=== PATIENT | female | born 1965 | race Caucasian/White ===

== ENCOUNTER 2023-12-31 18:55 | Inpatient (IN) ==
--- NOTE | 2023-12-31 19:26 | Emergency Department Note ---
Impression & Plan Pulmonary embolism ADMIT ED Provider Note History obtained from patient. The patient is a 58-year-old female with complex past surgical history secondary to perforated appendicitis requiring multiple surgical procedures at [facility] including ostomy placement this past October, subsequent infection requiring abscess drainage and washout 1 month ago, presents the emergency department today with chief complaint of shortness of breath. Patient states that she has had some shortness of breath throughout the day today since she woke up. Patient states this seemed to be getting acutely worse and therefore she contacted EMS from her home to be evaluated. Patient states that on their arrival she was saturating 85% on 2 L nasal cannula oxygen and therefore was placed on oxy-mask at 10 L with good improvement. Patient states that she believes that her oxygen tank might of run out and that is why she was feeling short of breath. Patient denies any abdominal pain, denies any nausea or vomiting. She states that she has had some drainage over the past month from the site of a previous drain placement and she states that she has seen her surgeon for this and was advised to continue daily dressings without need for surgical intervention. On arrival here to the ED the patient is hemodynamically stable and saturating in the high 90s on oxygen mask at 10 L. She denies any chest pain and otherwise appears to be in no acute distress on my initial assessment. Patient is afebrile on arrival. ROS: - Per HPI Differential Diagnosis: Pneumonia, CHF exacerbation, acute coronary syndrome, sepsis, abdominal wall cellulitis, pulmonary embolism, amongst other potential pathologies. *Outpatient medications and allergy history reviewed. PE: General: Alert, frail-appearing, no acute distress HEENT: Normocephalic, trachea midline Eyes: Extraocular eye movement is intact, no scleral erythema Pulmonary: Diminished bilateral breath sounds without wheezing or crackles Cardio: Regular rate and rhythm GI: Abdomen is soft to palpation, there is a Latesha drain in place in the anterior abdomen, ostomy is in place without surrounding erythema or drainage, there is appropriate drainage of stool in the ostomy bag, there is a wound with some purulent drainage to the anterior midline of the lower abdomen, open wound that appears to be healing appropriately to the left side of the abdomen without purulent drainage, there is an excoriated wound with overlying purulence that patient states is chronic to the area overlying the right hip : No suprapubic tenderness MSK: No evidence of trauma or malformation of the extremities, no edema Skin: Abdominal exam findings as above, otherwise no evidence of rash Neuro: Alert, no focal deficits Psychiatric: Cooperative INDEPENDENT INTERPRETATIONS: major sales associate: (As interpreted by myself): - An order was placed for continuous cardiac monitoring - Patient was noted to be in sinus rhythm with a rate of 95 EKG: (As interpreted by myself): Rate: 109 Rhythm: Sinus tachycardia Intervals: Within normal limits ST changes: No ST elevation Time: 7 Chest x-ray: (As interpreted by myself): Left-sided pleural effusion Interventions provided in ED: -DuoNeb breathing treatment, IV cefepime, IV vancomycin Medical Decision Making: IV was established and lab work obtained, patient was placed on manager auto. Patient was maintained on nonrebreather mask at 10 L. Lab work shows a leukocytosis of 21.8, hemoglobin is stable at 10.9, platelet count is elevated at 601, venous blood gas shows normal pH with minimal elevation in pCO2 of 51, CMP does not show any critical findings, procalcitonin is noted to be low at 0.16. EKG per my interpretation shows sinus rhythm without any acute ischemic changes. Troponin is negative. Viral panel testing was obtained and is negative. Given the patient's hypoxia and recent immobilized state secondary to multiple surgeries, I did obtain CT angiography of the chest that does show evidence of extensive right-sided pulmonary embolism with radiographic evidence of right heart strain, also evidence of bilateral pleural effusion with compressive atelectasis most significant in the left lower lobe. Patient was treated with IV cefepime and IV vancomycin here in the ED and started on IV heparin. I did discuss the patient's CT imaging results with the interpreting radiologist, Dr. Livingston. I discussed all of the above with the patient, on my reassessment she is with stable blood pressure and remains saturating well at 96% on 10 L nonrebreather mask. I discussed the patient's presentation with the on-call hospitalist, Dr. Donohue, and the patient was placed for admission in stable condition for further management. Consultants/Discussions held with other healthcare providers: -Hospitalist, Dr. Donohue -Radiology, Dr. Livingston Disposition discussion held by myself with: -Patient and significant other at the bedside * CRITICAL CARE TIME: ( 43 ) minutes -Management of patient with hypoxia (oxygen of 85% in the field despite nasal cannula oxygen) and evidence of extensive pulmonary embolism on CT imaging requiring supplemental oxygen via nonrebreather mask for correction of hypoxia and initiation of heparin drip for PE with evidence of right heart strain on CT imaging. Discussion with other physicians and arrangement of admission. Diagnosis: 1. Pulmonary embolism, acute 2. Hypoxia, acute 3. Leukocytosis, acute 4. Abdominal wall abscess with active drainage, chronic, postoperative in nature 5. Bilateral pleural effusion, acute Disposition: Admission Carlito Knight DO Emergency Medicine Past Med/Surg History Problem List (Updated 12/31/23 @ 23:18 by Carlito Knight DO) Pulmonary embolism (Acute) Elevated troponin Medical History (Updated 12/31/23 @ 23:18 by Carlito Knight DO) Hypothyroidism Diabetes Surgical History Colostomy present History of exploratory laparotomy Family History (Updated 11/26/23 @ 04:29 by Hallie Donohue DO) Other Family history non-contributory Social History (Updated 11/26/23 @ 04:30 by Hallie Donohue DO) Smoking Status: Never smoker Hx Alcohol Use: No Hx Substance Use: No Preferred Language: Maltese Feels Safe at Home: Yes Allergies Allergies Allergy/AdvReac Type Severity Reaction Status Date / Time No Known Allergies Allergy Verified 12/13/23 09:08 Home Meds Home Medications Medication Instructions Recorded Confirmed diphenoxylate-atropine 2.5 1 tab PO BID 11/26/23 12/13/23 mg-0.025 mg tablet ergocalciferol (vitamin D2) 1,250 50,000 unit PO WK 11/26/23 12/13/23 mcg (50,000 unit) capsule (Vitamin D2) insulin glargine 100 unit/mL (3 0 unit subcut DIRECTED 11/26/23 12/13/23 mL) subcutaneous pen (Lantus Solostar U-100 Insulin) insulin lispro 100 unit/mL 0 unit subcut DIRECTED 11/26/23 12/13/23 subcutaneous pen (Humalog KwikPen (U-100) Insulin) levothyroxine 150 mcg tablet 150 mcg PO DAILYBB 11/26/23 12/13/23 Results & Data (ED) Vital Signs Vital Signs - 24 hr 12/31/23 19:02 12/31/23 19:02 12/31/23 19:10 Temperature 36.9 C Temperature Source Oral Pulse Rate 112 H Pulse Rate [Apical] Respiratory Rate 32 H Respiratory Effort / Characteristics Labored Respiratory Depth Shallow Respiratory Pattern Tachypnea Blood Pressure 149/97 H Blood Pressure [Left Arm] Blood Pressure Mean 114 Blood Pressure Mean [Left Arm] Pulse Oximetry 96 Oxygen Delivery Method Non-rebreather Non-rebreather Non-rebreather Oxygen Flow Rate 10 10 10 Sepsis Recent Fever Within 48 Hours No Sepsis New/Unexplained Change in Mental Status No Sepsis Action Taken by Nursing Physician Notified 12/31/23 19:14 12/31/23 19:16 12/31/23 19:22 Temperature Temperature Source Pulse Rate 109 H 109 H Pulse Rate [Apical] 110 H Respiratory Rate 34 H 36 H Respiratory Effort / Characteristics Respiratory Depth Respiratory Pattern Blood Pressure Blood Pressure [Left Arm] 125/65 Blood Pressure Mean Blood Pressure Mean [Left Arm] 85 Pulse Oximetry 95 98 Oxygen Delivery Method Non-rebreather Non-rebreather Oxygen Flow Rate 10 10 Sepsis Recent Fever Within 48 Hours Sepsis New/Unexplained Change in Mental Status Sepsis Action Taken by Nursing 12/31/23 21:00 Temperature Temperature Source Pulse Rate Pulse Rate [Apical] 111 H Respiratory Rate 34 H Respiratory Effort / Characteristics Respiratory Depth Respiratory Pattern Blood Pressure Blood Pressure [Left Arm] 138/76 Blood Pressure Mean Blood Pressure Mean [Left Arm] 96 Pulse Oximetry 96 Oxygen Delivery Method Non-rebreather Oxygen Flow Rate 10 Sepsis Recent Fever Within 48 Hours Sepsis New/Unexplained Change in Mental Status Sepsis Action Taken by Nursing Laboratory Data 12/31/23 20:51 12/31/23 20:52 Lab Results 12/31/23 12/31/23 12/31/23 Range/Units 19:46 20:51 20:52 WBC 21.81 H (4.8-10.8) K/ul RBC 3.90 L (4.20-5.40) M/uL Hgb 10.9 L (12.0-16.0) g/dl Hct 35.3 L (37.0-47.0) % MCV 90.5 (80.0-100.0) fL MCH 27.9 (25.0-34.0) pg MCHC 30.9 L (32.0-36.0) g/dL RDW Std Deviation 57.8 H (36.4-46.3) fL RDW Coeff of Krista 17.6 H (11.5-14.5) % Plt Count 601 H (130-400) K/uL MPV 9.2 L (9.4-12.4) fL Immature Gran % (Auto) 1.1 % Neut % (Auto) 70.2 % Lymph % (Auto) 20.0 % Schley % (Auto) 7.9 % Eos % (Auto) 0.2 % Baso % (Auto) 0.6 % Neut # (Auto) 15.32 H (1.40-6.50) K/uL Lymph # (Auto) 4.36 H (1.20-3.40) K/uL Schley # (Auto) 1.73 H (0.11-0.59) K/uL Eos # (Auto) 0.04 (0.00-0.50) K/uL Baso # (Auto) 0.12 (0.00-0.20) K/uL Immature Gran # (Auto) 0.24 H (0.01-0.20) K/uL VBG pH 7.36 (7.36-7.41) VBG pCO2 51 H (38-50) mmHg VBG pO2 39 mmHg VBG HCO3 29 mmol/L VBG O2 Saturation 64.7 % VBG Base Excess 2.4 mEq/L Sodium 136 (136-145) mmol/L Potassium 3.9 (3.5-5.1) mmol/L Chloride 98 (98-107) mmol/L Carbon Dioxide 26 (21-32) mmol/L Anion Gap 12 H (3-11) BUN 14 (6-23) mg/dl Creatinine 0.44 L (0.6-1.2) mg/dl Est Cr Clr Drug Dosing 142.7 ml/min Est GFR ( Amer) 127.2 ml/min Est GFR (Non-Af Amer) 109.7 ml/min BUN/Creatinine Ratio 31.8 H (10-20) Glucose 140 H (70-99(Fasting)) mg/dl Lactate (0.4-2.0) mmol/L Calcium 9.7 (8.6-10.3) mg/dl Total Bilirubin 0.5 (0.2-1.0) mg/dl AST 12 L (13-39) U/L ALT 17 (7-52) U/L Alkaline Phosphatase 379 H (34-104) U/L Troponin I High Sens 12.1 (0-14) pg/ml B-Natriuretic Peptide 103 H (0-100) pg/ml Total Protein 7.2 (6.0-8.3) gm/dl Albumin 2.9 L (3.4-5.0) gm/dl Globulin 4.3 H (2.5-4.0) gm/dl Albumin/Globulin Ratio 0.7 L (0.9-2) Procalcitonin 0.16 (0-0.5) ng/ml Adenovirus (PCR) Not Detected (NotDetected) B. pertussis DNA (PCR) Not Detected (NotDetected) B.parapertussis DNA PCR Not Detected (NotDetected) C. pneumoniae DNA (PCR) Not Detected (NotDetected) Coronavirus OC43 (PCR) Not Detected (NotDetected) Coronavirus HKU1 (PCR) Not Detected (NotDetected) Coronavirus 229E (PCR) Not Detected (NotDetected) SARS-CoV-2 (PCR) Not Detected (NotDetected) Coronavirus NL63 (PCR) Not Detected (NotDetected) Human Metapneumovir PCR Not Detected (NotDetected) Influenza Type A (PCR) Not Detected (NotDetected) Influenza Type B (PCR) Not Detected (NotDetected) M. pneumoniae (PCR) Not Detected (NotDetected) Parainfluenza 1 (PCR) Not Detected (NotDetected) Parainfluenza 2 (PCR) Not Detected (NotDetected) Parainfluenza 3 (PCR) Not Detected (NotDetected) Parainfluenza 4 (PCR) Not Detected (NotDetected) RSV (PCR) Not Detected (NotDetected) Entero/Rhino (PCR) Not Detected (NotDetected) 12/31/23 Range/Units 21:38 WBC (4.8-10.8) K/ul RBC (4.20-5.40) M/uL Hgb (12.0-16.0) g/dl Hct (37.0-47.0) % MCV (80.0-100.0) fL MCH (25.0-34.0) pg MCHC (32.0-36.0) g/dL RDW Std Deviation (36.4-46.3) fL RDW Coeff of Krista (11.5-14.5) % Plt Count (130-400) K/uL MPV (9.4-12.4) fL Immature Gran % (Auto) % Neut % (Auto) % Lymph % (Auto) % Schley % (Auto) % Eos % (Auto) % Baso % (Auto) % Neut # (Auto) (1.40-6.50) K/uL Lymph # (Auto) (1.20-3.40) K/uL Schley # (Auto) (0.11-0.59) K/uL Eos # (Auto) (0.00-0.50) K/uL Baso # (Auto) (0.00-0.20) K/uL Immature Gran # (Auto) (0.01-0.20) K/uL VBG pH (7.36-7.41) VBG pCO2 (38-50) mmHg VBG pO2 mmHg VBG HCO3 mmol/L VBG O2 Saturation % VBG Base Excess mEq/L Sodium (136-145) mmol/L Potassium (3.5-5.1) mmol/L Chloride (98-107) mmol/L Carbon Dioxide (21-32) mmol/L Anion Gap (3-11) BUN (6-23) mg/dl Creatinine (0.6-1.2) mg/dl Est Cr Clr Drug Dosing ml/min Est GFR ( Amer) ml/min Est GFR (Non-Af Amer) ml/min BUN/Creatinine Ratio (10-20) Glucose (70-99(Fasting)) mg/dl Lactate 1.5 (0.4-2.0) mmol/L Calcium (8.6-10.3) mg/dl Total Bilirubin (0.2-1.0) mg/dl AST (13-39) U/L ALT (7-52) U/L Alkaline Phosphatase (34-104) U/L Troponin I High Sens (0-14) pg/ml B-Natriuretic Peptide (0-100) pg/ml Total Protein (6.0-8.3) gm/dl Albumin (3.4-5.0) gm/dl Globulin (2.5-4.0) gm/dl Albumin/Globulin Ratio (0.9-2) Procalcitonin (0-0.5) ng/ml Adenovirus (PCR) (NotDetected) B. pertussis DNA (PCR) (NotDetected) B.parapertussis DNA PCR (NotDetected) C. pneumoniae DNA (PCR) (NotDetected) Coronavirus OC43 (PCR) (NotDetected) Coronavirus HKU1 (PCR) (NotDetected) Coronavirus 229E (PCR) (NotDetected) SARS-CoV-2 (PCR) (NotDetected) Coronavirus NL63 (PCR) (NotDetected) Human Metapneumovir PCR (NotDetected) Influenza Type A (PCR) (NotDetected) Influenza Type B (PCR) (NotDetected) M. pneumoniae (PCR) (NotDetected) Parainfluenza 1 (PCR) (NotDetected) Parainfluenza 2 (PCR) (NotDetected) Parainfluenza 3 (PCR) (NotDetected) Parainfluenza 4 (PCR) (NotDetected) RSV (PCR) (NotDetected) Entero/Rhino (PCR) (NotDetected) Administered Medications Discontinued Medications Albuterol (Albut/Ipratrop 3mg/0.5mg Neb 3 Ml Vial) 3 ml NEB NOW STA; Protocol Stop: 12/31/23 19:18 Last Admin: 12/31/23 19:51 Dose: 3 ml Documented By: MERVIN Ioversol (Optiray 320 125ml) 125 ml IV ONCE ONE Stop: 12/31/23 22:51 Last Admin: 12/31/23 22:50 Dose: 118 ml Documented By: CE Imaging Data Radiologist's Impression: Chest CTA 12/31/23 19:19 CR Exam(s): CTA CHEST IV Amt: 118 ML OPTIRAY 320 EXAM: CT Angiography Chest With Intravenous Contrast CLINICAL HISTORY: Reason for exam: PE. TECHNIQUE: Axial computed tomographic angiography images of the chest with intravenous contrast. CTDI is 28.2 mGy and DLP is 498.52 mGy-cm. Automated exposure control was utilized for the study. A dose lowering technique was utilized adhering to the principles of ALARA. MIP reconstructed images were created and reviewed. COMPARISON: 11/26/23 FINDINGS: Limitations: Motion artifact. Pulmonary arteries: Adequate opacification of the pulmonary arteries. Enlarged main pulmonary artery suggesting pulmonary arterial hypertension. Extensive acute pulmonary emboli beginning in the right pulmonary artery and extending through the lobar, segmental, and subsegmental branches of the right upper, middle, and lower lobes. Aorta: No acute findings. No thoracic aortic aneurysm. Lungs: Compressive atelectasis in the dependent lung torres bilaterally with complete collapse of the left lower lobe. No mass. Pleural space: Moderate left and small right pleural effusions, increased from prior exam. No pneumothorax. Heart: Positive for right ventricular seen with RV/LV ratio measuring 2. 0. No cardiomegaly or pericardial effusion. Bones/joints: No acute fracture or dislocation. Soft tissues: Unremarkable. Lymph nodes: Unremarkable. No adenopathy. IMPRESSION: 1. Extensive acute pulmonary emboli beginning in the right pulmonary artery and extending through the lobar, segmental, and subsegmental branches of the right upper, middle, and lower lobes. 2. Positive for right ventricular seen with RV/LV ratio measuring 2.0. 3. Moderate left and small right pleural effusions, increased from prior exam. 4. Compressive atelectasis in the dependent lung torres bilaterally with complete collapse of the left lower lobe. Communications: Call Doctor Pulmonary Embolism Electronically signed by: Bello Livingston M.D. 12/31/23 23:10 PM Discharge Plan Visit Data Chief Complaint: Respiratory Problems ED Provider: Carlito Knight Discharge Problem: Pulmonary embolism Forms Stand Alone Forms: [facility] Prescriptions Prescriptions: No Action diphenoxylate-atropine 2.5-0.025 mg tablet 1 tab PO BID levothyroxine 150 mcg tablet 150 mcg PO DAILYBB ergocalciferol (vitamin D2) [Vitamin D2] 1,250 mcg (50,000 unit) capsule 50,000 unit PO WK Rx Instructions: MONDAYS insulin lispro [Humalog KwikPen Insulin] 100 unit/mL insulin pen 0 unit SUBCUT DIRECTED insulin glargine [Lantus Solostar U-100 Insulin] 100 unit/mL (3 mL) insulin pen 0 unit SUBCUT DIRECTED Referrals Referrals: Elsa Hilliard MD [Primary Care Provider] - Discharge Problem: Pulmonary embolism Qualifiers: Pulmonary embolism type: unspecified Chronicity: acute Acute cor pulmonale presence: unspecified Qualified Code(s): I26.99 - Other pulmonary embolism without acute cor pulmonale
[2023-12-31] MEDS: ALBUT/IPRATROP 3MG/0.5MG NEB 3 ML VIAL NEB STA (19:51)
[2023-12-31 20:54] LABS: Adenovirus PCR Not Detected (NotDetected); Bordetella parapertussis PCR Not Detected (NotDetected); Bordetella pertussis PCR Not Detected (NotDetected); Chlamydia pneumoniae PCR Not Detected (NotDetected); Coronavirus 229E PCR Not Detected (NotDetected); Coronavirus CoV-2 (COVID19)PCR Not Detected (NotDetected); Coronavirus HKU1 PCR Not Detected (NotDetected); Coronavirus NL63 PCR Not Detected (NotDetected); Coronavirus OC43PCR Not Detected (NotDetected); Human Metapneumovirus PCR Not Detected (NotDetected); Influenza A PCR Not Detected (NotDetected); Influenza B PCR Not Detected (NotDetected); Mycoplasma pneumoniae PCR Not Detected (NotDetected); Parainfluenza Virus 1 PCR Not Detected (NotDetected); Parainfluenza Virus 2 PCR Not Detected (NotDetected); Parainfluenza Virus 3 PCR Not Detected (NotDetected); Parainfluenza Virus 4 PCR Not Detected (NotDetected); Respiratory Syncytial VirusPCR Not Detected (NotDetected); Rhinovirus/Enterovirus PCR Not Detected (NotDetected)
[2023-12-31 21:04] LABS: Base Excess VBG 2.4 mEq/L; HCO3 VBG 29 mmol/L; Oxygen Saturation VBG 64.7 %; PCO2 VBG 51 mmHg (38-50); PO2 VBG 39 mmHg; pH VBG 7.36 (7.36-7.41)
[2023-12-31 21:16] LABS: Basophils # (auto) 0.12 K/uL (0.00-0.20); Basophils % (auto) 0.6 %; Eosinophils # (auto) 0.04 K/uL (0.00-0.50); Eosinophils % (auto) 0.2 %; Hematocrit (blood only) 35.3 % (37.0-47.0); Hemoglobin 10.9 g/dl (12.0-16.0); Immature Granulocytes # (auto) 0.24 K/uL (0.01-0.20); Immature Granulocytes % (auto) 1.1 %; Lymphocytes # (auto) 4.36 K/uL (1.20-3.40); Mean Corpuscular Hemoglobin 27.9 pg (25.0-34.0); Mean Corpuscular Hgb Conc 30.9 g/dL (32.0-36.0); Mean Corpuscular Volume 90.5 fL (80.0-100.0); Mean Platelet Volume 9.2 fL (9.4-12.4); Monocytes # (auto) 1.73 K/uL (0.11-0.59); Monocytes % (auto) 7.9 %; Neutrophils # (auto) 15.32 K/uL (1.40-6.50); Neutrophils % (auto) 70.2 %; Platelet Count 601 K/uL (130-400); RDW Coefficient of Variation 17.6 % (11.5-14.5); RDW Standard Deviation 57.8 fL (36.4-46.3); White Blood Count 21.81 K/ul (4.8-10.8)
[2023-12-31] MEDS ORDERED: VANCOMYCIN CONSULT ACTIVE PRN (21:18)
[2023-12-31] MEDS ORDERED: ONDANSETRON INJ 2 MG/ML 2 ML VIAL IV STA (21:59)
[2023-12-31] MEDS ORDERED: MoRPHine SULFATE 4 MG/ML 1 ML CARP\\VIAL IV STA (21:59)
[2023-12-31 22:28] LABS: Albumin Level 2.9 gm/dl (3.4-5.0); Bilirubin,Total 0.5 mg/dl (0.2-1.0); Calcium 9.7 mg/dl (8.6-10.3); Potassium 3.9 mmol/L (3.5-5.1)
[2023-12-31 22:34] LABS: Albumin Globulin Ratio 0.7 (0.9-2); BUN Creatinine Ratio 31.8 (10-20); Creatinine Clr Calc Pharmacy 142.7 ml/min; Est GFR (African American) 127.2 ml/min; Est GFR (Non-African American) 109.7 ml/min; Globulin 4.3 gm/dl (2.5-4.0); Total Protein 7.2 gm/dl (6.0-8.3)
[2023-12-31 22:44] LABS: Troponin I High Sensitivity 12.1 pg/ml (0-14)
[2023-12-31] MEDS: OPTIRAY 320 125ml IV ONE (22:50)
[2023-12-31] MEDS ORDERED: Heparin IV Adult Wt-Based Standard w/ INITIAL Bolus Protocol IV STA (22:54)
--- NOTE | 2023-12-31 23:11 | CT Scan Report ---
Exam(s): CTA CHEST IV Amt: 118 ML OPTIRAY 320 EXAM: CT Angiography Chest With Intravenous Contrast CLINICAL HISTORY: Reason for exam: PE. TECHNIQUE: Axial computed tomographic angiography images of the chest with intravenous contrast. CTDI is 28.2 mGy and DLP is 498.52 mGy-cm. Automated exposure control was utilized for the study. A dose lowering technique was utilized adhering to the principles of ALARA. MIP reconstructed images were created and reviewed. COMPARISON: 11/26/23 FINDINGS: Limitations: Motion artifact. Pulmonary arteries: Adequate opacification of the pulmonary arteries. Enlarged main pulmonary artery suggesting pulmonary arterial hypertension. Extensive acute pulmonary emboli beginning in the right pulmonary artery and extending through the lobar, segmental, and subsegmental branches of the right upper, middle, and lower lobes. Aorta: No acute findings. No thoracic aortic aneurysm. Lungs: Compressive atelectasis in the dependent lung torres bilaterally with complete collapse of the left lower lobe. No mass. Pleural space: Moderate left and small right pleural effusions, increased from prior exam. No pneumothorax. Heart: Positive for right ventricular seen with RV/LV ratio measuring 2. 0. No cardiomegaly or pericardial effusion. Bones/joints: No acute fracture or dislocation. Soft tissues: Unremarkable. Lymph nodes: Unremarkable. No adenopathy. IMPRESSION: 1. Extensive acute pulmonary emboli beginning in the right pulmonary artery and extending through the lobar, segmental, and subsegmental branches of the right upper, middle, and lower lobes. 2. Positive for right ventricular seen with RV/LV ratio measuring 2.0. 3. Moderate left and small right pleural effusions, increased from prior exam. 4. Compressive atelectasis in the dependent lung torres bilaterally with complete collapse of the left lower lobe. Communications: Call Doctor Pulmonary Embolism Electronically signed by: Bello Livingston M.D. 12/31/23 23:10 PM
[2023-12-31] MEDS: CEFEPIME 1,000 MG in SYRINGE 0 ML IV STA (23:21)
[2023-12-31] MEDS: VANCOMYCIN HCL 1,500 MG in SODIUM CHLORIDE 0.9% 500 ML IV ONE (23:24)
[2023-12-31 23:44] LABS: INR 1.1 (0.9-1.1); Partial Thromboplastin Ratio 1.2; Partial Thromboplastin Time 32 Seconds (21-31); Prothrombin Time 12.1 Seconds (9.0-12.0)
--- NOTE | 2024-01-01 00:20 | History & Physical Report ---
Date of Service January 01, 2024 Assessment & Plan (1) Pulmonary embolism: Plan: 58yo female with extensive surgical history presenting with acute onset shortness of breath. Found to have extensive right sided PE. Patient with tachycardia. Blood pressure has been stable. Saturations adequate on NRB. Patient with prior history of PE in 2003 following operation on the right foot. -Admit to MICU -Heparin gtt --> NOAC when stable -Check 2D echo -Should patient become unstable will administer tPA -Check bilateral LE dopplers (2) Hypoxic respiratory failure: Plan: In setting of PE, bilateral pleural effusions, possible PNA -Continue supplemental O2 -Continue heparin gtt for management of PEs -Possible thoracentesis in AM -Empiric antibiotic coverage with Zosyn and Vancomycin (3) Open abdominal wall wound: Plan: Likely ongoing infection. Patient with sepsis, present on admission - tachycardia, tachypnea, leukocytosis. -Wound care -Culture obtained from left lower abdominal wound -Continue Zosyn -Nutrition consultation - hopeful to improve wound healing -Check CT Abdomen/Pelvis with contrast - timed for later today at 12:00 (appx 13 hours following last administration of contrast) -Morphine as needed for pain control -Zofran as needed for nausea -Miralax as needed for constipation (4) Bilateral pleural effusion: Plan: Noted. Possibly contributing to patient's hypoxia -Possible thoracentesis Plan Hypothyroidism -Chronic -Continue Synthroid DM -Chronic -Lantus 24u daily and ISS History of Present Illness Chief Complaint: shortness of breath Primary Care Provider: Elsa Hilliard MD Acacia Vo is a 58yo female with history of Hypothyroidism, DM presenting with shortness of breath. Patient with a fairly complex past history. She initially presented to an outside facility on 10/27/23 with abdominal pain and DKA. She was found to have perforation of her colon and appendix. She had a partial colectomy with colostomy formation and was ultimately discharged home on 11/13/23. She presented to [facility] ER on 11/26/23 with sepsis - WBC of 56.47. Imaging at that time with moderate bilateral pleural effusions, bilateral lower lobe atelectasis and a fluid collection to the right posterolateral uterus measuring 5.5 x 2 x 2 cm which could represent a small abscess. Patient was managed with Zosyn and ultimately transferred to [facility]. She remained there until 12/05/23 and reportedly had a washout performed. She has an open abdominal wound at present with wet-to-dry dressings daily as well as a curtis drain. She has a small tunneled lesion on her left lower abdomen with continuous purulent drainage. Patient was discharged to [facility] where she participated in rehab. She was ultimately discharged home on 12/16/23. Patient reports she has been very weak since returning home. She is very afraid of falling therefore does not ambulate much. She has had a poor appetite and note eating well. Her and home nursing complete dressing changes. In addition to her abdominal wounds she has a sacral wound as well. This AM she woke and did not feel like herself. She felt nauseated and very short of breath. She was not able to eat her breakfast or walk due to her s hortness of breath. Patient wears 2L of supplemental O2 at baseline - she reports that her home tank wasn't working. Her nurse checked her pulse ox and was found to be 85%. Her O2 tank was fixed and increased her flow to 4L but she remained short of breath which prompted her to come to the ER. In the ER she was afebrile, tachycardic with HR of 103, tachypneic with RR of 31, saturating 70% on RA. She was placed on NRB with improvement in saturations. Allergies Allergy/AdvReac Type Severity Reaction Status Date / Time No Known Allergies Allergy Verified 01/01/24 01:02 Home Medications Medication Instructions Recorded Confirmed Type ergocalciferol (vitamin D2) 1,250 50,000 unit PO WK 11/26/23 01/01/24 History mcg (50,000 unit) capsule (Vitamin D2) insulin lispro 100 unit/mL 6 unit subcut TIDM 11/26/23 01/01/24 History subcutaneous pen (Humalog KwikPen (U-100) Insulin) levothyroxine 150 mcg tablet 150 mcg PO DAILYBB 11/26/23 01/01/24 History ascorbic acid (vitamin C) 500 mg 500 mg PO Q OTHER DAY 01/01/24 01/01/24 History tablet (Vitamin C) cephalexin 250 mg capsule 250 mg PO Q6 01/01/24 01/01/24 History ferrous sulfate 325 mg (65 mg 325 mg PO Q OTHER DAY 01/01/24 01/01/24 History iron) tablet folic acid 1 mg tablet 1 mg PO DAILY 01/01/24 01/01/24 History insulin glargine 100 unit/mL (3 24 unit subcut QAM 01/01/24 01/01/24 History mL) subcutaneous pen (Lantus Solostar U-100 Insulin) pantoprazole 40 mg tablet,delayed 40 mg PO DAILYBB 01/01/24 01/01/24 History release (Protonix) psyllium husk 3.4 gram/5.4 gram 1 tbsp PO BID PRN Constipation 01/01/24 01/01/24 History oral powder (Metamucil) Past Med/Surg History Problem List Nutritional assessment Open abdominal wall wound Bilateral pleural effusion Hypoxic respiratory failure SIRS (systemic inflammatory response syndrome) Pulmonary embolism (Acute) Elevated troponin Medical History Hypothyroidism Diabetes Surgical History Colostomy present History of exploratory laparotomy Family History Other Family history non-contributory Social History Smoking Status: Unknown if ever smoked Hx Alcohol Use: No Hx Substance Use: No Preferred Language: Indonesian Communication Ability: Effective Combatant Swimmer Required: No Beliefs That Will Affect Care: None Current Living Situation: Spouse Other Information That Helps Us Care for You: No Feels Safe at Home: Yes Safety Concerns: Feels Safe At This Time Assistive Devices: Glasses and Walker Review of Systems Review of Systems: All systems reviewed & are unremarkable except as noted in HPI & below Patient endorses nausea, sacral pain and shortness of breath Physical Exam Physical Exam: General: ill appearing female, NRB in place Skin: no rash HEENT: NC/AT, PERRL, EOMI, anicteric sclera, conjunctiva without injection, external ear normal to inspection and nontender, nares patent, moist mucus membranes, dentition intact, no oropharyngeal lesions, neck supple, trachea midline, no LAD, no thyromegaly, no JVD Heart: +S1/S2, regular, tachycardic, no m/r/g Lungs: visibly tachypneic, diminished breath sounds in bilateral bases, no rhonchi or wheeze Abd: +BS, soft, open abdominal wound with ABD pad in place, curtis drain in place, small wound in left lower abdomen with expressible purulence, colostomy present with soft stool present in bag Neuro: nonfocal, patient AA&O x 4, speech intact, no facial droop, moving all extremities on command with equal strength 5/5 Results & Data Results & Data Vital Signs (Past 12 Hours) Vital Signs Temp Pulse Pulse Resp BP BP Pulse Ox 12/31/23 23:00 103 H 31 H 120/82 95 12/31/23 21:00 111 H 34 H 138/76 96 12/31/23 19:22 109 H 36 H 98 12/31/23 19:16 109 H 12/31/23 19:14 110 H 34 H 125/65 95 12/31/23 19:10 12/31/23 19:02 36.9 C 112 H 32 H 149/97 H 96 12/31/23 19:02 O2 Del Method O2 Flow Rate 12/31/23 23:00 12/31/23 21:00 Non-rebreather 10 12/31/23 19:22 Non-rebreather 10 12/31/23 19:16 12/31/23 19:14 Non-rebreather 10 12/31/23 19:10 Non-rebreather 10 12/31/23 19:02 Non-rebreather 10 12/31/23 19:02 Non-rebreather 10 Laboratory Results Laboratory Results WBC 21.81 K/ul (4.8-10.8) H 12/31/23 20:51 RBC 3.90 M/uL (4.20-5.40) L 12/31/23 20:51 Hgb 10.9 g/dl (12.0-16.0) L 12/31/23 20:51 Hct 35.3 % (37.0-47.0) L 12/31/23 20:51 MCV 90.5 fL (80.0-100.0) 12/31/23 20:51 MCH 27.9 pg (25.0-34.0) 12/31/23 20:51 MCHC 30.9 g/dL (32.0-36.0) L 12/31/23 20:51 RDW Std Deviation 57.8 fL (36.4-46.3) H 12/31/23 20:51 RDW Coeff of Krista 17.6 % (11.5-14.5) H 12/31/23 20:51 Plt Count 601 K/uL (130-400) H 12/31/23 20:51 MPV 9.2 fL (9.4-12.4) L 12/31/23 20:51 Immature Gran % (Auto) 1.1 % 12/31/23 20:51 Neut % (Auto) 70.2 % 12/31/23 20:51 Lymph % (Auto) 20.0 % 12/31/23 20:51 [place] % (Auto) 7.9 % 12/31/23 20:51 Eos % (Auto) 0.2 % 12/31/23 20:51 Baso % (Auto) 0.6 % 12/31/23 20:51 Neut # (Auto) 15.32 K/uL (1.40-6.50) H 12/31/23 20:51 Lymph # (Auto) 4.36 K/uL (1.20-3.40) H 12/31/23 20:51 [place] # (Auto) 1.73 K/uL (0.11-0.59) H 12/31/23 20:51 Eos # (Auto) 0.04 K/uL (0.00-0.50) 12/31/23 20:51 Baso # (Auto) 0.12 K/uL (0.00-0.20) 12/31/23 20:51 Immature Gran # (Auto) 0.24 K/uL (0.01-0.20) H 12/31/23 20:51 PT 12.1 Seconds (9.0-12.0) H 12/31/23 20:51 INR 1.1 (0.9-1.1) 12/31/23 20:51 APTT 32 Seconds (21-31) H 12/31/23 20:51 PTT Ratio 1.2 12/31/23 20:51 VBG pH 7.36 (7.36-7.41) 12/31/23 20:51 VBG pCO2 51 mmHg (38-50) H 12/31/23 20:51 VBG pO2 39 mmHg 12/31/23 20:51 VBG HCO3 29 mmol/L 12/31/23 20:51 VBG O2 Saturation 64.7 % 12/31/23 20:51 VBG Base Excess 2.4 mEq/L 12/31/23 20:51 Sodium 136 mmol/L (136-145) 12/31/23 20:52 Potassium 3.9 mmol/L (3.5-5.1) 12/31/23 20:52 Chloride 98 mmol/L (98-107) 12/31/23 20:52 Carbon Dioxide 26 mmol/L (21-32) 12/31/23 20:52 Anion Gap 12 (3-11) H 12/31/23 20:52 BUN 14 mg/dl (6-23) 12/31/23 20:52 Creatinine 0.44 mg/dl (0.6-1.2) L 12/31/23 20:52 Est Cr Clr Drug Dosing 142.7 ml/min 12/31/23 20:52 Est GFR ( Amer) 127.2 ml/min 12/31/23 20:52 Est GFR (Non-Af Amer) 109.7 ml/min 12/31/23 20:52 BUN/Creatinine Ratio 31.8 (10-20) H 12/31/23 20:52 Glucose 140 mg/dl (70-99(Fasting)) H 12/31/23 20:52 POC Glucose 119 mg/dl (70-99) H 01/01/24 01:34 Lactate 1.5 mmol/L (0.4-2.0) 12/31/23 21:38 Calcium 9.7 mg/dl (8.6-10.3) 12/31/23 20:52 Phosphorus 4.2 mg/dl (2.5-4.9) 12/31/23 20:52 Magnesium 1.7 mg/dl (1.7-2.4) 12/31/23 20:52 Iron 18 mcg/dl (35-150) L 12/31/23 20:52 TIBC 173 mcg/dl (250-450) L 12/31/23 20:52 Unsaturated IBC 155 mcg/dl (155-355) 12/31/23 20:52 Transferrin % Sat 10 % (15-50) L 12/31/23 20:52 Total Bilirubin 0.5 mg/dl (0.2-1.0) 12/31/23 20:52 AST 12 U/L (13-39) L 12/31/23 20:52 ALT 17 U/L (7-52) 12/31/23 20:52 Alkaline Phosphatase 379 U/L (34-104) H 12/31/23 20:52 Troponin I High Sens 12.1 pg/ml (0-14) 12/31/23 20:52 B-Natriuretic Peptide 103 pg/ml (0-100) H 12/31/23 20:51 Total Protein 7.2 gm/dl (6.0-8.3) 12/31/23 20:52 Albumin 2.9 gm/dl (3.4-5.0) L 12/31/23 20:52 Globulin 4.3 gm/dl (2.5-4.0) H 12/31/23 20:52 Albumin/Globulin Ratio 0.7 (0.9-2) L 12/31/23 20:52 Procalcitonin 0.16 ng/ml (0-0.5) 12/31/23 20:51 Nasal Screen MRSA (PCR) Negative (Negative) 01/01/24 01:04 Adenovirus (PCR) Not Detected (NotDetected) 12/31/23 19:46 B. pertussis DNA (PCR) Not Detected (NotDetected) 12/31/23 19:46 B.parapertussis DNA PCR Not Detected (NotDetected) 12/31/23 19:46 C. pneumoniae DNA (PCR) Not Detected (NotDetected) 12/31/23 19:46 Coronavirus OC43 (PCR) Not Detected (NotDetected) 12/31/23 19:46 Coronavirus HKU1 (PCR) Not Detected (NotDetected) 12/31/23 19:46 Coronavirus 229E (PCR) Not Detected (NotDetected) 12/31/23 19:46 SARS-CoV-2 (PCR) Not Detected (NotDetected) 12/31/23 19:46 Coronavirus NL63 (PCR) Not Detected (NotDetected) 12/31/23 19:46 Human Metapneumovir PCR Not Detected (NotDetected) 12/31/23 19:46 Influenza Type A (PCR) Not Detected (NotDetected) 12/31/23 19:46 Influenza Type B (PCR) Not Detected (NotDetected) 12/31/23 19:46 M. pneumoniae (PCR) Not Detected (NotDetected) 12/31/23 19:46 Parainfluenza 1 (PCR) Not Detected (NotDetected) 12/31/23 19:46 Parainfluenza 2 (PCR) Not Detected (NotDetected) 12/31/23 19:46 Parainfluenza 3 (PCR) Not Detected (NotDetected) 12/31/23 19:46 Parainfluenza 4 (PCR) Not Detected (NotDetected) 12/31/23 19:46 RSV (PCR) Not Detected (NotDetected) 12/31/23 19:46 Entero/Rhino (PCR) Not Detected (NotDetected) 12/31/23 19:46 Impressions Chest CTA 12/31/23 19:19 CR Exam(s): CTA CHEST IV Amt: 118 ML OPTIRAY 320 EXAM: CT Angiography Chest With Intravenous Contrast CLINICAL HISTORY: Reason for exam: PE. TECHNIQUE: Axial computed tomographic angiography images of the chest with intravenous contrast. CTDI is 28.2 mGy and DLP is 498.52 mGy-cm. Automated exposure control was utilized for the study. A dose lowering technique was utilized adhering to the principles of ALARA. MIP reconstructed images were created and reviewed. COMPARISON: 11/26/23 FINDINGS: Limitations: Motion artifact. Pulmonary arteries: Adequate opacification of the pulmonary arteries. Enlarged main pulmonary artery suggesting pulmonary arterial hypertension. Extensive acute pulmonary emboli beginning in the right pulmonary artery and extending through the lobar, segmental, and subsegmental branches of the right upper, middle, and lower lobes. Aorta: No acute findings. No thoracic aortic aneurysm. Lungs: Compressive atelectasis in the dependent lung torres bilaterally with complete collapse of the left lower lobe. No mass. Pleural space: Moderate left and small right pleural effusions, increased from prior exam. No pneumothorax. Heart: Positive for right ventricular seen with RV/LV ratio measuring 2. 0. No cardiomegaly or pericardial effusion. Bones/joints: No acute fracture or dislocation. Soft tissues: Unremarkable. Lymph nodes: Unremarkable. No adenopathy. IMPRESSION: 1. Extensive acute pulmonary emboli beginning in the right pulmonary artery and extending through the lobar, segmental, and subsegmental branches of the right upper, middle, and lower lobes. 2. Positive for right ventricular seen with RV/LV ratio measuring 2.0. 3. Moderate left and small right pleural effusions, increased from prior exam. 4. Compressive atelectasis in the dependent lung torres bilaterally with complete collapse of the left lower lobe. Communications: Call Doctor Pulmonary Embolism Electronically signed by: Bello Livingston M.D. 12/31/23 23:10 PM Code Status & VTE Plan VTE Prophylaxis Plan VTE Prophylaxis will be ordered: Yes PG Care Time/CCT Total # of Minutes Spent Total Time Spent with Patient: Total time spent is greater than 50% in coordination of care (as documented) at patient's floor/unit and/or counseling patient: Coding Level of Care Code 27457 INT INP/OBS CARE 3/75MIN Diagnoses Pulmonary embolism I26.99 Acute cor pulmonale presence: unspecified Chronicity: acute Pulmonary embolism type: unspecified Hypoxic respiratory failure J96.91 Open abdominal wall wound S31.109A Bilateral pleural effusion J90 (1) Pulmonary embolism Acute cor pulmonale presence: unspecified Chronicity: acute Pulmonary embolism type: unspecified Qualified Code(s): I26.99 - Other pulmonary embolism without acute cor pulmonale
[2024-01-01] MEDS: HEPARIN SODIUM/DEXTROSE 25,000 UNITS/500 ML BAG IV SCH (00:27)
[2024-01-01] MEDS: HEPARIN SOD (PORCINE) 1000 UNIT/ML IV ONE ×2 (00:29→22:32)
--- NOTE | 2024-01-01 01:13 | Critical Care Consultation ---
Date of Consultation January 01, 2024 Assessment & Plan (1) Pulmonary embolism: (2) SIRS (systemic inflammatory response syndrome): (3) Hypoxic respiratory failure: (4) Bilateral pleural effusion: (5) Open abdominal wall wound: (6) Nutritional assessment: Plan Reason Critically Ill: 58 YOF post surgical care received at [facility]. Presents to EMD for hypoxia, noted to have sub massive right sided pulmonary embolism, bilateral pleural effusions, SIRS with ALFRED. Neuro - No acute needs CAM ICU: NEGATIVE - will need PT/OT as she has decreased function secondary prolonged hospitalizations and decreased nutritional intake Cardiac - Sepsis, Pulmonary embolism - Sepsis- meets SIRS criteria with likely source of skin vs. intraabdominal- with open abdomen and drainage from wound - Pulmonary embolism with acute DVT left lower extremity- submassive involving majority of right pulmonary artery branches - Blood pressure has remained stable, lactate negative, BNP 103 -mildly elevated, Troponin Negative - Shock index 1.1 - Oxygen support requiring NRB at this time- if further support is needed will attempt HFNC and or CPAP/BiPAP- avoid intubation if able - If patient suffers arrests - will administer tPA 50mg with CPR continuing for 15 minutes after Respiratory - Hypoxic respiratory failure, bilateral pleural effusions Multifactorial Hypoxia is likely from pulmonary emboli as well as bilateral pleural effusion - Her pleural effusions are chronic- but increase of left sided resulting in compressive atelectasis of left upper lobe - likely related to poor nutritional intake- low oncotic pressure however can't exclude possible source for infection GI - Colostomy present, open abdominal wound - Ostomy output is as expected - Nutritional assessment appreciated- will add Thiamine. She may also be at risk for re-feeding syndrome - Wound care consultation for midline abdominal incision- currently with wet to dry Follow-up wound culture Wound culture did grow MRSA back in November 2023 RENAL/LYTES - -- Monitor BUNs/creatinine Avoid nephrotoxic medications - place Zamudio ENDO - DM I - Continue with basal and bolus insulin goal <180mg/dl HEME - Leukocytosis, thrombocytosis, anemia - See ID section below - anemia and thrombocytosis likely related to nutritional deficits - thrombocytosis has been present since November as this is our only records ID - Sepsis without shock at this time - intraabdominal/skin are likely sources at this time, consideration to pleural effusion involvement may be indicated - Continue with Zosyn -Got a dose of vancomycin, will discontinue vancomycin given previous abdominal culture was only MRSA --Prophylaxis VTE: Heparin drip GI: Pantoprazole Lines: Peripheral, ostomy, zamudio Diet: Regular Supervising Physician Co-Signing Physician Notes I saw and evaluated the patient with MERRITT Hess, and agree with findings and plan as documented in the note. 58-year-old female with complicated past medical history of abdominal surgeries was admitted to the hospital because of shortness of breath was found to have pulmonary emboli sPESI score was high. Hemodynamically stable. Although patient did have some soft blood pressures when I saw her. At the time of examination she stated that her breathing is better compared to when she came to the hospital Denies any chest pain No headache Has chronic nausea. No vomiting. She was saturating 93-94% on 5 L OxyMask. Constitutional: No acute distress HEENT: EOMI, PERRLA Respiratory system: Decreased air entry bilaterally, no wheeze, no rhonchi, positive crackles bilaterally CVS: S1-S2 positive, no murmurs or gallops Abdomen: Soft, nontender, nondistended, positive bowel sounds x4, positive ostomy, suprapubic drainage serous looking Extremities: +2 pulses bilaterally radialis/ dorsalis pedis, no cyanosis, +1 pitting edema bilateral lower extremity Neuro: Awake alert oriented x3 Psych: Normal mood and affect G/U: Positive Zamudio Plan: Random cortisol, if low then we will give her hydrocortisone. Patient has a significant left-sided pleural effusion with compressive atelectasis, I do think that is also playing a role in patient's hypoxia although pulmonary emboli The possibility of effusion coming from reaction to intra-abdominal process is there. Will send it for culture as well For thoracentesis. Will hold heparin drip 4 hours prior to thoracentesis. DC vancomycin, continue with Zosyn. Potassium and magnesium being replaced I have personally spent 62 minutes of critical care time in the direct management of this patient. This is a life/limb threatening event. This includes time spent evaluating patient, direct bedside care, chart review, placing orders, interpretation of diagnostic studies, discussion with consultants, patient, and family members, as well as other required patient management activities. This time is exclusive of all separately billable procedures, and teaching time and separate from and in addition to any other critical care service time. Thank you for allowing us to participate in the care of this patient. Please refer to my attending physician's documentation for any further recommendations. History of Present Illness Reason for Consultation: hypoxic respiratory failure, PE, Plueral Effusions Requesting Physician: Hallie Donohue DO Attending Physician: Hallie Donohue DO History of Present Illness 58 YOF with past medical history of Hypothyroidism, DM I. Patient has surgical history of perforated colon and appendix in October s/p placement at [facility], she was transferred at that time where she underwent washouts as well as drainage of an abscess. She was at home continuing with home health for dressing changes, and states she has seen her surgeon within the past week and reportedly no further surgical care needed for her wounds, this also reportedly included the lower abdominal wound that is draining purulent drainage. She reports that home health is doing her dressing changes. She reports that she has been not able to eat much secondary to early satiety and the same for fluids. She reports being on 2L NC and when home health came this morning she was more fatigued and difficulty breathing, reports saturations in the 80s, they increased her oxygen with no effect. She also reports increase in pain behind her knees over the past few days. She was then brought to the [facility]. She had routine labs performed, CXR, obtained, blood cultures, CTA of the chest obtained. She remains with leukocytosis of 21 and elevated NLR. CTA of the chest revealed extensive pulmonary emboli in the right pulmonary artery and extending through lobar, segmental, and subsegmental branches of the right uppe r, middle, and lower lobes. Her pleural effusions are increased from previous exam, more notably on the left than on the right resulting in compressive atelectasis of the left upper lobe. ICU was consulted for monitoring of respiratory status and hemodynamics. Patient is with elevated BNP, has been hemodynamically stable, shock index of 1.1, negative lactate level. On evaluation she is frail appearing and cachetic she reports losing approx 30-40 pounds since her hospitalization in October. She is with poor peripheral access at this time and requiring NRB for respiratory support. Skin is warm and dry. CODE: FULL Allergies Allergy/AdvReac Type Severity Reaction Status Date / Time No Known Allergies Allergy Verified 01/01/24 01:02 Home Medications Medication Instructions Recorded Confirmed Type ergocalciferol (vitamin D2) 1,250 50,000 unit PO WK 11/26/23 01/01/24 History mcg (50,000 unit) capsule (Vitamin D2) insulin lispro 100 unit/mL 6 unit subcut TIDM 11/26/23 01/01/24 History subcutaneous pen (Humalog KwikPen (U-100) Insulin) levothyroxine 150 mcg tablet 150 mcg PO DAILYBB 11/26/23 01/01/24 History ascorbic acid (vitamin C) 500 mg 500 mg PO Q OTHER DAY 01/01/24 01/01/24 History tablet (Vitamin C) cephalexin 250 mg capsule 250 mg PO Q6 01/01/24 01/01/24 History ferrous sulfate 325 mg (65 mg 325 mg PO Q OTHER DAY 01/01/24 01/01/24 History iron) tablet folic acid 1 mg tablet 1 mg PO DAILY 01/01/24 01/01/24 History insulin glargine 100 unit/mL (3 24 unit subcut QAM 01/01/24 01/01/24 History mL) subcutaneous pen (Lantus Solostar U-100 Insulin) pantoprazole 40 mg tablet,delayed 40 mg PO DAILYBB 01/01/24 01/01/24 History release (Protonix) psyllium husk 3.4 gram/5.4 gram 1 tbsp PO BID PRN Constipation 01/01/24 01/01/24 History oral powder (Metamucil) Patient History Medical History Hypothyroidism Diabetes Surgical History Colostomy present History of exploratory laparotomy Family History Other Family history non-contributory Social History Smoking Status: Unknown if ever smoked Hx Alcohol Use: No Hx Substance Use: No Preferred Language: Faroese Communication Ability: Effective [employer] Required: No Beliefs That Will Affect Care: None Current Living Situation: Spouse Other Information That Helps Us Care for You: No Feels Safe at Home: Yes Safety Concerns: Feels Safe At This Time Assistive Devices: Glasses and Walker Review of Systems Review of Systems: REVIEW OF SYSTEMS: Constitutional: No fever, sweats or chills Eyes: No diplopia, no worsening or blurred vision ENT: normal hearing, no trouble swallowing Respiratory: (+) dyspnea at rest or on exertion, No cough, sputum, Cardiovascular: No chest pain, tightness or palpitations Abdomen: (+) open wounds with drainage, ostomy output normal, No pain, nausea, vomiting, diarrhea or constipation Musculoskeletal: No joint pain, calf pain, swelling Neurologic: (+) generalized overall weakness, No focal weakness, numbness/tingling, or balance problems Psychiatric: No anxiety or depression Skin: (+) incisions and draiange to her abdomen, reports breakdown on her sacrum, Physical Exam Physical Exam: PHYSICAL EXAM: General: awake, alert, fatigued and ill appearing Head: Normocephalic, atraumatic ENT: PERRLA, EOMI, no pharyngeal exudate, mucous membranes dry Neuro: AAO x 3, speech clear and appropriate, strength intact bilaterally 5/5, sensation intact and equal all extremities and dermatomes, no pronator drift Chest: equal rise and fall of the chest, dyspneic with conversation, no accessory muscle use Cardiac: Regular rate and rhythm, telemetry reviewed- sinus tachycardia no ectopy, skin warm dry, cap refill <3 seconds, peripheral pulses +2 no JVD, no murmur, no JVD, no edema GI: NABS x 4 quadrants, soft, ostomy present, midline incision open with wet to dry, suprapubic/lower abdominal wound- open draining purulent drainage, no focal area of fluctuance noted : will place Zamudio catheter for urine output monitoring and keep wounds dry Psych: Normal mood and affect Skin: open area to abdomen- midline with wet to dry, lower abdomen open draining purulent drainage, right sacral area stage II present on admission Results & Data Results & Data Vital Signs (Past 12 Hours) Vital Signs Temp Pulse Pulse Resp BP BP Pulse Ox 12/31/23 23:00 103 H 31 H 120/82 95 12/31/23 21:00 111 H 34 H 138/76 96 12/31/23 19:22 109 H 36 H 98 12/31/23 19:16 109 H 12/31/23 19:14 110 H 34 H 125/65 95 12/31/23 19:10 12/31/23 19:02 36.9 C 112 H 32 H 149/97 H 96 12/31/23 19:02 O2 Del Method O2 Flow Rate 12/31/23 23:00 12/31/23 21:00 Non-rebreather 10 12/31/23 19:22 Non-rebreather 10 12/31/23 19:16 12/31/23 19:14 Non-rebreather 10 12/31/23 19:10 Non-rebreather 10 12/31/23 19:02 Non-rebreather 10 12/31/23 19:02 Non-rebreather 10 Laboratory Results Abnormal lab results 12/31/23 12/31/23 Range/Units 20:51 20:52 WBC 21.81 H (4.8-10.8) K/ul RBC 3.90 L (4.20-5.40) M/uL Hgb 10.9 L (12.0-16.0) g/dl Hct 35.3 L (37.0-47.0) % MCHC 30.9 L (32.0-36.0) g/dL RDW Std Deviation 57.8 H (36.4-46.3) fL RDW Coeff of Krista 17.6 H (11.5-14.5) % Plt Count 601 H (130-400) K/uL MPV 9.2 L (9.4-12.4) fL Neut # (Auto) 15.32 H (1.40-6.50) K/uL Lymph # (Auto) 4.36 H (1.20-3.40) K/uL [place] # (Auto) 1.73 H (0.11-0.59) K/uL Immature Gran # (Auto) 0.24 H (0.01-0.20) K/uL PT 12.1 H (9.0-12.0) Seconds APTT 32 H (21-31) Seconds VBG pCO2 51 H (38-50) mmHg Anion Gap 12 H (3-11) Creatinine 0.44 L (0.6-1.2) mg/dl BUN/Creatinine Ratio 31.8 H (10-20) Glucose 140 H (70-99(Fasting)) mg/dl AST 12 L (13-39) U/L Alkaline Phosphatase 379 H (34-104) U/L B-Natriuretic Peptide 103 H (0-100) pg/ml Albumin 2.9 L (3.4-5.0) gm/dl Globulin 4.3 H (2.5-4.0) gm/dl Albumin/Globulin Ratio 0.7 L (0.9-2) Diagnostic Findings Chest CTA 12/31/23 19:19 CR Exam(s): CTA CHEST IV Amt: 118 ML OPTIRAY 320 EXAM: CT Angiography Chest With Intravenous Contrast CLINICAL HISTORY: Reason for exam: PE. TECHNIQUE: Axial computed tomographic angiography images of the chest with intravenous contrast. CTDI is 28.2 mGy and DLP is 498.52 mGy-cm. Automated exposure control was utilized for the study. A dose lowering technique was utilized adhering to the principles of ALARA. MIP reconstructed images were created and reviewed. COMPARISON: 11/26/23 FINDINGS: Limitations: Motion artifact. Pulmonary arteries: Adequate opacification of the pulmonary arteries. Enlarged main pulmonary artery suggesting pulmonary arterial hypertension. Extensive acute pulmonary emboli beginning in the right pulmonary artery and extending through the lobar, segmental, and subsegmental branches of the right upper, middle, and lower lobes. Aorta: No acute findings. No thoracic aortic aneurysm. Lungs: Compressive atelectasis in the dependent lung torres bilaterally with complete collapse of the left lower lobe. No mass. Pleural space: Moderate left and small right pleural effusions, increased from prior exam. No pneumothorax. Heart: Positive for right ventricular seen with RV/LV ratio measuring 2. 0. No cardiomegaly or pericardial effusion. Bones/joints: No acute fracture or dislocation. Soft tissues: Unremarkable. Lymph nodes: Unremarkable. No adenopathy. IMPRESSION: 1. Extensive acute pulmonary emboli beginning in the right pulmonary artery and extending through the lobar, segmental, and subsegmental branches of the right upper, middle, and lower lobes. 2. Positive for right ventricular seen with RV/LV ratio measuring 2.0. 3. Moderate left and small right pleural effusions, increased from prior exam. 4. Compressive atelectasis in the dependent lung torres bilaterally with complete collapse of the left lower lobe. Communications: Call Doctor Pulmonary Embolism Electronically signed by: Bello Livingston M.D. 12/31/23 23:10 PM Medications Administered Home Medications ergocalciferol (vitamin D2) 1,250 mcg (50,000 unit) capsule (Vitamin D2) 50,000 unit PO WK 11/26/23 [History Confirmed 01/01/24] insulin lispro 100 unit/mL subcutaneous pen (Humalog KwikPen (U-100) Insulin) 6 unit subcut TIDM 11/26/23 [History Confirmed 01/01/24] levothyroxine 150 mcg tablet 150 mcg PO DAILYBB 11/26/23 [History Confirmed 01/01/24] ascorbic acid (vitamin C) 500 mg tablet (Vitamin C) 500 mg PO Q OTHER DAY 01/01/24 [History Confirmed 01/01/24] cephalexin 250 mg capsule 250 mg PO Q6 01/01/24 [History Confirmed 01/01/24] ferrous sulfate 325 mg (65 mg iron) tablet 325 mg PO Q OTHER DAY 01/01/24 [History Confirmed 01/01/24] folic acid 1 mg tablet 1 mg PO DAILY 01/01/24 [History Confirmed 01/01/24] insulin glargine 100 unit/mL (3 mL) subcutaneous pen (Lantus Solostar U-100 Insulin) 24 unit subcut QAM 01/01/24 [History Confirmed 01/01/24] pantoprazole 40 mg tablet,delayed release (Protonix) 40 mg PO DAILYBB 01/01/24 [History Confirmed 01/01/24] psyllium husk 3.4 gram/5.4 gram oral powder (Metamucil) 1 tbsp PO BID PRN Constipation 01/01/24 [History Confirmed 01/01/24] Active Medications Heparin Sodium/Dextrose (Heparin Sodium/Dextrose) 25,000 units in 500 mls @ 24 mls/hr IV .[id number] [facility]; Protocol Stop: 01/30/24 23:14 Last Admin: 01/01/24 00:27 Dose: 1,200 units/hr, 24 mls/hr Miscellaneous Information (Vancomycin Consult Active) 1 each N/A UD PRN PRN Reason: Consult Stop: 01/30/24 21:17 Coding Level of Care Code 02455 CRITICAL CARE 1ST 30-74M Diagnoses Pulmonary embolism I26.99 Acute cor pulmonale presence: unspecified Chronicity: acute Pulmonary embolism type: unspecified SIRS (systemic inflammatory response syndrome) R65.10 Hypoxic respiratory failure J96.91 Bilateral pleural effusion J90 Open abdominal wall wound S31.109A Nutritional assessment Z00.8 (1) Pulmonary embolism Acute cor pulmonale presence: unspecified Chronicity: acute Pulmonary embolism type: unspecified Qualified Code(s): I26.99 - Other pulmonary embolism without acute cor pulmonale
[2024-01-01] MEDS ORDERED: ONDANSETRON INJ 2 MG/ML 2 ML VIAL IV PRN (01:31)
[2024-01-01] MEDS ORDERED: ACETAMINOPHEN 325 MG TAB PO PRN (01:31)
[2024-01-01] MEDS ORDERED: MoRPHine SULFATE 2 MG/ML CARP IV PRN (01:31)
[2024-01-01] MEDS ORDERED: POLYETHYLENE (MIRALAX) 17 GM PACK PO PRN (01:31)
[2024-01-01] MEDS ORDERED: GLUCOSE 10 TAB/TUBE PO PRN (01:38)
[2024-01-01] MEDS ORDERED: DEXTROSE 50% 50 ML SYRINGE IV PRN (01:38)
[2024-01-01] MEDS ORDERED: GLUCAGON FOR INJ 1 MG VIAL SQ PRN (01:38)
[2024-01-01] MEDS ORDERED: GLUCOSE 40% GEL 15 GM TUBE PO PRN (01:38)
[2024-01-01] MEDS ORDERED: CARBOHYDRATES FOR HYPOGLYCEMIA PO PRN (01:38)
[2024-01-01] MEDS ORDERED: VANCOMYCIN CONSULT ACTIVE PRN ×3 (01:47→18:29)
[2024-01-01] MEDS: LACTATED RINGER'S 1,000 ML IV ONE (02:04)
[2024-01-01] MEDS: PIPERACILLIN/TAZOBACTAM 4.5 GM in DEXTROSE 5% MINI-B 100 ML IV ONE (02:04)
[2024-01-01] MEDS ORDERED: PSYLLIUM or GUAR GUM FIBER 4GM PACKET PO PRN (02:08)
[2024-01-01 02:37] LABS: Magnesium 1.7 mg/dl (1.7-2.4)
[2024-01-01 02:43] LABS: Phosphorus 4.2 mg/dl (2.5-4.9)
[2024-01-01] MEDS: VANCOMYCIN HCL 1,250 MG in SODIUM CHLORIDE 0.9% 250 ML IV SCH ×2 (03:19→19:56)
[2024-01-01 03:26] LABS: Appearance Urine Clear (Clear); Bacteria Urine Automated None Seen (None Seen); Bilirubin Urine Negative (Negative); Blood Urine Negative (Negative); Cast Urine Automated 0-2 /lpf (0-2); Color Urine Dark Yellow; Epithelial Cell Urine Auto 0-2 /hpf (0-2); Glucose Urine UA Negative (Negative); Ketones Urine 1+ (Negative); Leukocyte Esterase Urine Negative (Negative); Nitrite Urine Negative (Negative); Protein Urine 1+ (Negative); Specific Gravity Urine > 1.045 (1.000-1.030); Urobilinogen Urine Negative (Negative); WBC Urine Automated 0-5 /hpf (0-5)
[2024-01-01 03:37] LABS: Mucus Urine Present (None Prsent); RBC Urine Automated 0-2 /hpf (0-2)
[2024-01-01 04:59] LABS: Calcium 9.2 mg/dl (8.6-10.3); Magnesium 1.7 mg/dl (1.7-2.4); Potassium 3.6 mmol/L (3.5-5.1)
[2024-01-01 05:05] LABS: BUN Creatinine Ratio 30.8 (10-20); Creatinine Clr Calc Pharmacy 160.9 ml/min; Est GFR (African American) 132.3 ml/min; Est GFR (Non-African American) 114.2 ml/min; Phosphorus 3.9 mg/dl (2.5-4.9)
[2024-01-01] MEDS: ICU ELECTROLYTE REPLACEMENT PROTOCOL SCH (05:15)
[2024-01-01] MEDS: PIPERACILLIN/TAZOBACTAM 4.5 GM in DEXTROSE 5% MINI-B 100 ML IV SCH (05:58)
[2024-01-01] MEDS: MAGNESIUM SULFATE / D5W 1 GM/100 ML BAG IV SCH (06:03)
[2024-01-01] MEDS: LEVOTHYROXINE SODIUM 150 MCG TABLET PO SCH (06:06)
[2024-01-01] MEDS: POTASSIUM CHLORIDE CRTAB 20 MEQ TABCR PO SCH (06:06)
[2024-01-01] MEDS: PANTOprazole 40 MG TAB PO SCH (06:06)
[2024-01-01 06:36] LABS: Basophils # (auto) 0.09 K/uL (0.00-0.20); Basophils % (auto) 0.6 %; Eosinophils % (auto) 0.7 %; Hematocrit (blood only) 31.4 % (37.0-47.0); Hemoglobin 9.6 g/dl (12.0-16.0); Immature Granulocytes # (auto) 0.14 K/uL (0.01-0.20); Immature Granulocytes % (auto) 0.9 %; Lymphocytes # (auto) 1.89 K/uL (1.20-3.40); Lymphocytes % (auto) 12.3 %; Mean Corpuscular Hgb Conc 30.6 g/dL (32.0-36.0); Mean Corpuscular Volume 88.5 fL (80.0-100.0); Mean Platelet Volume 9.2 fL (9.4-12.4); Monocytes # (auto) 1.37 K/uL (0.11-0.59); Monocytes % (auto) 8.9 %; Neutrophils # (auto) 11.75 K/uL (1.40-6.50); Neutrophils % (auto) 76.6 %; Platelet Count 587 K/uL (130-400); RDW Coefficient of Variation 17.3 % (11.5-14.5); Red Blood Count 3.55 M/uL (4.20-5.40); White Blood Count 15.34 K/ul (4.8-10.8)
--- NOTE | 2024-01-01 07:03 | XRay Report ---
XR chest 1V portable HISTORY: 58 years-old Female Dyspnea acute shortness of breath COMPARISON: CTA chest of same day TECHNIQUE: AP view of the chest FINDINGS: Cardiac silhouette is upper limits of normal in size. Layering pleural effusions with bibasilar conso lidation. There is no pneumothorax. Pulmonary vascular congestion. Bones appear grossly intact. IMPRESSION: 1. Layering pleural effusions with bibasilar consolidation. 2. Pulmonary vascular congestion. ACT 112: Negative or not required by law. The above report was generated using voice recognition software. It may contain grammatical, syntax o r spelling errors. Electronically signed by: Alcon Jacinto M.D. 01/01/2024 7:01 AM
[2024-01-01] MEDS ORDERED: ICU Protocol for HYPERglycemia SCH (07:30)
--- NOTE | 2024-01-01 07:33 | Hospitalist Progress Note ---
Date of Service January 01, 2024 Assessment & Plan (1) Pulmonary embolism: Plan: 58yo female with extensive complex past surgical history secondary to perforated appendicitis requiring multiple surgical procedures at [facility] including ostomy placement this past October, subsequent infection requiring abscess drainage and washout 1 month ago, transferred to [facility], discharged to home from that facility on 12/16/23. Pt typically on home oxygen Presents the emergency department with acute respiratory failure with hypoxia, Found to have submassive R PE and SIRS -requiring supplemental oxygen Hemodynamically stable, does have bilateral pleural effusion Patient with prior history of PE in 2003 following operation on the right foot. -Heparin gtt --> held for thoracenteiss, resumed, will consider NOAC when stable -Check 2D echo -Empiric antibiotic coverage with Zosyn and Vancomycin -positive bilateral LE dopplers Occlusive deep venous thrombus is in the left lower extremity extending from the common femoral vein to the greater saphenous vein and superficial femoral vein. There is also a nonocclusive official femoral vein extending from the distal superficial femoral vein through the popliteal, posterior tibial, peroneal, and one of the paired anterior tibial veins. (2) Open abdominal wall wound: Plan: Likely ongoing infection. Patient with sepsis, present on admission - tachycardia, tachypnea, leukocytosis. -Wound/Ostomy care -Culture obtained from left lower abdominal wound -Continue Vanco/ Zosyn -Nutrition consultation - hopeful to improve wound healing -Pending CT Abdomen/Pelvis with contrast - reults not back yet -Morphine as needed for pain control -Zofran as needed for nausea -Miralax as needed for constipation Plan Hypothyroidism -Continue Synthroid DM -Chronic -Lantus 24u daily and ISS anemia of chronic inflammation, iron low but so is binding capacity hgb 9.6 given multiple recurrent surgeries, pt may be considered to return to [facility] system Admission and Anticipated Discharge Date Admission Date: January 01, 2024 Subjective pt is weakened and fatigued, attempting to eat puree food thoracentesis for 1700ml fluid on 12/31 left chest Physical Exam Physical Exam: weakened, abdomen is bandaged, ostomy is funtioning lungs diminished at bases, Results & Data Results & Data Vital Signs (Past 12 Hours) Vital Signs Temp Pulse Pulse Resp BP BP BP 01/01/24 06:00 89 17 112/63 01/01/24 05:00 90 26 H 121/72 07/24/24 04:02 97.7 F 89 24 112/60 01/01/24 03:00 92 H 20 103/60 01/01/24 02:03 94 H 22 111/64 01/01/24 02:00 01/01/24 02:00 01/01/24 01:36 98.1 F 98 H 28 H 116/76 12/31/23 23:00 103 H 31 H 120/82 12/31/23 21:00 111 H 34 H 138/76 Pulse Ox Pulse Ox O2 Del Method O2 Del Method O2 Flow Rate O2 Flow Rate 01/01/24 06:00 92 Oxymask 5 01/01/24 05:00 95 Oxymask 5 01/01/24 04:02 94 Oxymask 5 01/01/24 03:00 91 Oxymask 7 01/01/24 02:03 95 Oxymask 7 01/01/24 02:00 Oxymask 7 01/01/24 02:00 95 Oxymask 7 01/01/24 01:36 94 Non-rebreather 10 12/31/23 23:00 95 12/31/23 21:00 96 Non-rebreather 10 Laboratory Results review cbc review chemistry review pleural fluid, does meet exudate, maybe due to blood content PG Care Time/CCT Total # of Minutes Spent Total Time Spent with Patient: Total time spent is greater than 50% in coordination of care (as documented) at patient's floor/unit and/or counseling patient: Coding Level of Care Code 45657 SUB INP/OBS CARE 3/50MIN Diagnoses Pulmonary embolism I26.99 Acute cor pulmonale presence: unspecified Chronicity: acute Pulmonary embolism type: unspecified Open abdominal wall wound S31.109A (1) Pulmonary embolism Acute cor pulmonale presence: unspecified Chronicity: acute Pulmonary embolism type: unspecified Qualified Code(s): I26.99 - Other pulmonary embolism without acute cor pulmonale
--- NOTE | 2024-01-01 07:43 | Ultrasound Report ---
US venous doppler LE BI CLINICAL HISTORY: ?DVT TECHNIQUE: Bilateral lower extremity real-time compression venous ultrasound with Color Doppler imagi ng. Utilizing real-time ultrasonic imaging multiple real time high-resolution ultrasonic images with compression and noncompression maneuvers of the deep venous system in addition to color doppler imagi ng were performed from the common femoral vein through the proximal calf veins. COMPARISON: None available at the time of this dictation. FINDINGS/IMPRESSION: Occlusive deep venous thrombus is in the left lower extremity extending from the common femoral vein to the greater saphenous vein and superficial femoral vein. There is also a nonocclusive official fem oral vein extending from the distal superficial femoral vein through the popliteal, posterior tibial, peroneal, and one of the paired anterior tibial veins. ACT 112: Negative or not required by law. Electronically signed by: Luis Edward M.D. 01/01/2024 7:41 AM
[2024-01-01] MEDS: HEPARIN SOD (PORCINE) 1000 UNIT/ML IV STA (07:48)
[2024-01-01] MEDS: INSULIN ASPART PER UNIT CHARGE SC SCH (07:49)
[2024-01-01] MEDS: FOLIC ACID 1 MG TAB PO SCH (07:50)
[2024-01-01] MEDS: LANTUS PER UNIT CHARGE SC SCH (08:08)
[2024-01-01] MEDS: THIAMINE HCL 300 MG in SODIUM CHLORIDE 0.9% 50 ML IV SCH (08:38)
[2024-01-01 13:49] LABS: Albumin Level 2.8 gm/dl (3.4-5.0); Bilirubin,Total 0.4 mg/dl (0.2-1.0); Total Protein 6.7 gm/dl (6.0-8.3)
[2024-01-01 13:53] LABS: ANTI-Xa, UFH(UnfractionatedHep < 0.10 IU/ml (0.3-0.7)
--- NOTE | 2024-01-01 14:02 | Procedure Note ---
Procedure Note Date of Service January 01, 2024 Note Procedure: Diagnostic therapeutic ultrasound-guided catheter thoracentesis Wharf Helper: Dr. Lilliana Rodriguez Indication: Left pleural effusion Consent: Signed by patient and verified with timeout prior to procedure Anesthesia: 1% lidocaine without epinephrine local. Procedure: Consent was verified and timeout performed. Appropriate imaging studies were reviewed prior to the procedure. Patient was placed in a seated position and limited thoracic ultrasound was performed of the left chest. See separate imaging. Appropriate site above the diaphragm for thoracentesis was selected. The skin was prepped and draped in normal sterile fashion. Lidocaine was used for local analgesia. Fluid was aspirated via the finder needle. A small skin britany was made with the scalpel and the catheter over the needle apparatus was advanced over the rib into the pleural space. Using the syringe one-way valve system, a total of 1700 mL's of serosanguineous fluid was removed. Procedure was terminated due to chest discomfort. The catheter was removed and observed to be intact. A sterile dressing was applied. Post procedure chest x-ray was ordered. Fluid was sent for labs, culture and cytology. Complications: None Blood loss: Less than 1 cc Coding CPT Codes Pulmonary/Thoracic - Pulmonary and Thoracic: 28601 Thoracentesis w imaging ([id number]) [facility] Procedure Codes (Charges) Pulmonary/Thoracic Procedure 1: Pulmonary and Thoracic: 14880 Thoracentesis w imaging
--- NOTE | 2024-01-01 14:13 | XRay Report ---
XR chest 1V portable CLINICAL HISTORY: s/p throa TECHNIQUE: Single frontal radiograph of the chest was obtained. Comparison: Comparison is made to chest radiograph 12/31/2023 FINDINGS: No lines and tubes are seen. The cardiomediastinal silhouette is normal. Lungs are underinflated but clear. Small bilateral pleural effusions are seen. IMPRESSION: Small bilateral pleural effusions decreased on the left and increased on the right from the prior exa m. No pneumothorax status post thoracentesis. ACT 112: Negative or not required by law. Electronically signed by: Luis Edward M.D. 01/01/2024 2:11 PM
[2024-01-01 14:42] LABS: Total Protein Pleural Fluid 4.4 gm/dl
[2024-01-01] MEDS: OPTIRAY 320 100ml IV ONE (15:42)
[2024-01-01] MEDS ORDERED: HEPARIN SOD (PORCINE) 1000 UNIT/ML IV ONE (15:59)
[2024-01-01 16:03] LABS: Appearance Pleural Fluid Cloudy; Color Pleural Fluid Amber; Lymphocytes, Fluid 35 %; Mono,Macrophage,Mesothelial 35 %; Neutrophils, Fluid 30 %; RBC Pleural Fluid Auto 19000 /uL; Source Pleural Fluid Left Lung; WBC Pleural Fluid Auto 1249 /uL
[2024-01-01] MEDS: FUROSEMIDE INJ 20 MG/2 ML VIAL IV ONE (16:39)
--- NOTE | 2024-01-01 17:16 | Hospitalist Progress Note ---
Date of Service January 01, 2024 Assessment & Plan (1) Pulmonary embolism: Plan: 58yo female with extensive complex past surgical history secondary to perforated appendicitis requiring multiple surgical procedures at [facility] including ostomy placement this past October, subsequent infection requiring abscess drainage and washout 1 month ago, transferred to [facility], discharged to home from that facility on 12/16/23. Pt typically on home oxygen Presents the emergency department with acute respiratory failure with hypoxia, Found to have submassive R PE and SIRS -requiring supplemental oxygen Hemodynamically stable, does have bilateral pleural effusion Patient with prior history of PE in 2003 following operation on the right foot. -Heparin gtt --> held for thoracenteiss, resumed, will consider NOAC when stable -Check 2D echo -Empiric antibiotic coverage with Zosyn and Vancomycin -positive bilateral LE dopplers Occlusive deep venous thrombus is in the left lower extremity extending from the common femoral vein to the greater saphenous vein and superficial femoral vein. There is also a nonocclusive official femoral vein extending from the distal superficial femoral vein through the popliteal, posterior tibial, peroneal, and one of the paired anterior tibial veins. *Acute pulmonary embolism due to acute left lower extremity DVT's (2) Open abdominal wall wound: Plan: Likely ongoing infection. Patient with sepsis, present on admission - tachycardia, tachypnea, leukocytosis. -Wound/Ostomy care -Culture obtained from left lower abdominal wound -Continue Vanco/ Zosyn -Nutrition consultation - hopeful to improve wound healing -Pending CT Abdomen/Pelvis with contrast - reults not back yet -Morphine as needed for pain control -Zofran as needed for nausea -Miralax as needed for constipation Plan Hypothyroidism -Continue Synthroid DM -Chronic -Lantus 24u daily and ISS anemia of chronic inflammation, iron low but so is binding capacity hgb 9.6 given multiple recurrent surgeries, pt may be considered to return to [facility] Admission and Anticipated Discharge Date Admission Date: January 01, 2024 Results & Data Results & Data Vital Signs (Past 12 Hours) Vital Signs Temp Pulse Resp BP Pulse Ox Pulse Ox O2 Del Method 01/01/24 16:44 98.8 F 01/01/24 16:08 85 01/01/24 15:16 93 01/01/24 15:10 115/69 01/01/24 15:10 115/69 01/01/24 15:10 115/69 01/01/24 15:05 119/70 01/01/24 15:05 119/70 01/01/24 15:03 87 34 H 93 01/01/24 15:00 91 H 29 H 87 L 01/01/24 15:00 124/66 01/01/24 15:00 124/66 01/01/24 14:55 115/71 01/01/24 14:55 115/71 01/01/24 14:50 114/67 01/01/24 14:40 122/66 01/01/24 14:39 88 23 93 01/01/24 14:35 125/65 01/01/24 14:35 125/65 01/01/24 14:35 125/65 01/01/24 14:33 91 H 24 89 L 01/01/24 14:30 87 26 H 92 01/01/24 14:30 124/61 01/01/24 14:30 124/61 01/01/24 14:25 122/66 01/01/24 14:25 122/66 01/01/24 14:18 86 30 H 93 01/01/24 14:15 122/67 01/01/24 14:15 122/67 01/01/24 14:15 122/67 01/01/24 14:15 122/67 01/01/24 14:10 113/72 01/01/24 14:10 113/72 01/01/24 14:09 89 26 H 91 01/01/24 14:05 129/65 01/01/24 14:05 129/65 01/01/24 14:05 129/65 01/01/24 14:05 129/65 01/01/24 14:00 111/64 01/01/24 14:00 88 23 93 01/01/24 13:55 115/56 L 01/01/24 13:55 115/56 L 01/01/24 13:55 115/56 L 01/01/24 13:55 115/56 L 01/01/24 13:54 89 30 H 95 01/01/24 13:50 106/58 L 01/01/24 13:42 109/59 L 01/01/24 13:39 89 30 H 92 01/01/24 13:35 128/72 01/01/24 13:35 128/72 01/01/24 13:33 92 H 36 H 93 01/01/24 13:00 108/80 01/01/24 13:00 96 H 34 H 94 01/01/24 11:17 98.2 F 01/01/24 11:14 122/64 01/01/24 11:03 85 20 93 01/01/24 10:30 87 19 91 01/01/24 10:06 85 30 H 95 01/01/24 10:00 103/55 L 01/01/24 09:57 84 18 92 01/01/24 09:50 109/62 01/01/24 09:30 83 16 93 01/01/24 09:00 85 17 94 01/01/24 09:00 95/53 L 01/01/24 08:36 88 17 94 01/01/24 08:18 97.5 F L 01/01/24 08:04 117/70 01/01/24 08:04 117/70 01/01/24 08:04 117/70 01/01/24 08:03 90 31 H 90 01/01/24 08:01 104/59 L 01/01/24 08:01 104/59 L 01/01/24 08:01 104/59 L 01/01/24 08:01 104/59 L 01/01/24 08:00 92 H 19 93 01/01/24 07:50 Oxymask 01/01/24 07:30 98 H 29 H 90 01/01/24 07:18 90 19 91 01/01/24 07:00 113/63 01/01/24 06:57 91 H 17 90 01/01/24 06:48 88 01/01/24 06:36 89 24 93 01/01/24 06:00 89 17 112/63 92 Oxymask O2 Del Method O2 Flow Rate O2 Flow Rate 01/01/24 16:44 01/01/24 16:08 01/01/24 15:16 Oxymask 2 01/01/24 15:10 01/01/24 15:10 01/01/24 15:10 01/01/24 15:05 01/01/24 15:05 01/01/24 15:03 01/01/24 15:00 01/01/24 15:00 01/01/24 15:00 01/01/24 14:55 01/01/24 14:55 01/01/24 14:50 01/01/24 14:40 01/01/24 14:39 01/01/24 14:35 01/01/24 14:35 01/01/24 14:35 01/01/24 14:33 01/01/24 14:30 01/01/24 14:30 01/01/24 14:30 01/01/24 14:25 01/01/24 14:25 01/01/24 14:18 01/01/24 14:15 01/01/24 14:15 01/01/24 14:15 01/01/24 14:15 01/01/24 14:10 01/01/24 14:10 01/01/24 14:09 01/01/24 14:05 01/01/24 14:05 01/01/24 14:05 01/01/24 14:05 01/01/24 14:00 01/01/24 14:00 01/01/24 13:55 01/01/24 13:55 01/01/24 13:55 01/01/24 13:55 01/01/24 13:54 01/01/24 13:50 01/01/24 13:42 01/01/24 13:39 01/01/24 13:35 01/01/24 13:35 01/01/24 13:33 01/01/24 13:00 01/01/24 13:00 01/01/24 11:17 01/01/24 11:14 01/01/24 11:03 01/01/24 10:30 01/01/24 10:06 01/01/24 10:00 01/01/24 09:57 01/01/24 09:50 01/01/24 09:30 01/01/24 09:00 01/01/24 09:00 01/01/24 08:36 01/01/24 08:18 01/01/24 08:04 01/01/24 08:04 01/01/24 08:04 01/01/24 08:03 01/01/24 08:01 01/01/24 08:01 01/01/24 08:01 01/01/24 08:01 01/01/24 08:00 01/01/24 07:50 5 01/01/24 07:30 01/01/24 07:18 01/01/24 07:00 01/01/24 06:57 01/01/24 06:48 01/01/24 06:36 01/01/24 06:00 5 PG Care Time/CCT Total # of Minutes Spent Total Time Spent with Patient: Total time spent is greater than 50% in coordination of care (as documented) at patient's floor/unit and/or counseling patient: Coding Level of Care Code None Diagnoses Pulmonary embolism I26.99 Acute cor pulmonale presence: unspecified Chronicity: acute Pulmonary embolism type: unspecified Open abdominal wall wound S31.109A (1) Pulmonary embolism Acute cor pulmonale presence: unspecified Chronicity: acute Pulmonary embolism type: unspecified Qualified Code(s): I26.99 - Other pulmonary embolism without acute cor pulmonale
--- NOTE | 2024-01-01 17:29 | CT Scan Report ---
CT abd pelvis IV con only CLINICAL HISTORY: extensive abdominal surgery, draining wound TECHNIQUE: Helical axial images of the abdomen and pelvis were obtained and displayed. Automated dose lowering techniques and/or adjustment according to patient size were utilized for this exam. This e xam was performed with intravenous contrast. CT DOSE: 961.45 mGy.cm COMPARISON: Comparison is made to CT abdomen pelvis 11/26/2023 FINDINGS: Lower chest: Moderate right and small left pleural effusions are seen. Airspace opacities in the lef t lower lobe. Liver: Unremarkable. No focal lesions are seen. Gallbladder and biliary tree: Cholelithiasis is seen without evidence of cholecystitis. No intra- or extrahepatic biliary ductal dilation. Pancreas: Unremarkable, no focal lesions. 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 Adrenals: Unremarkable. Kidneys and ureters: Unremarkable. Bladder: Gramajo catheter is seen. Reproductive organs: Unremarkable. Previously noted fluid collection posterolateral to the uterus is not clearly seen. Bowel: Patient is status post right lower quadrant colostomy. Lymph nodes Retroperitoneal: Unremarkable. Pelvic: Unremarkable. Mesenteric: Unremarkable. Peritoneum: Normal. Vessels: Unremarkable. Abdominal wall: Enhancing abdominal wall fluid collection is seen. There is involvement of the abdomi nal musculature but not of the peritoneal cavity. Drainage to the skin is noted. Bones: Unremarkable. IMPRESSION: 1. Interval development of an abdominal wall fluid collection with drainage to the skin concerning f or extensive abscess. Surgical consultation is recommended. No peritoneal invasion is seen. 2. Previously noted fluid collection posterolateral to the uterus is no longer clearly seen. 3. Cholelithiasis without cholecystitis. 4. Additional findings as above. ACT 112: Negative or not required by law. Electronically signed by: Luis Edward M.D. 01/01/2024 5:27 PM
--- NOTE | 2024-01-01 18:19 | Communication Note ---
Date of Service: January 01, 2024 1800- Patient admitted overnight to ICU for hypoxic respiratory failure in the setting of right submassive pulmonary embolism and bilateral pleural effusions. She was also subsequently noted to have purulent drainage from her lower abdominal incision. She had a CT scan of her abd/pelvis with IV contrast completed today. Imaging was independently reviewed by me as well. Imaging does reveal a abscess collection and previous drain noted. Radiology interpretation as follows: "developments of an abdominal wall fluid collection with drainage to the skin concerning for an extensive abscess." I have discussed the case with our surgeon orthodontic band maker Dr. Pardo, who is recommending transfer to her original place of surgery secondary to the size involvement of collections as well as no IR capabilities at this institution and with complicating factor of pulmonary embolism on heparin infusion. Dr. Nickerson called back and spoke with admitting medicine physician Dr. Donohue. He feels that it is not a colorectal surgical problem at this time, recommended admission to medical floor with surgical/colo-rectal consultation. At this time, patient is stable for downgrade to medical floor, discussed with my attending as well as medicine team. Medical accepting team identified as Dr. Herbert at [facility]. Awaiting bed placement and transport arrangement (20:00) Patient has been updated on CT findings and tentative plans for transfer at this time, until await surgical experts recommendations. Daughter updated with information above, no questions and will call when transport is planned [facility]ит[facility]ий [facility] Coding Level of Care Code 07955 Prolonged Care (int'l) Medical Decision Making Moderate Complexity Time Spent (min) 40 Comment coordinating care, consulting with specialists, independent review of imaging
--- NOTE | 2024-01-01 19:41 | Electrocardiogram Report ---
Test Reason : Blood Pressure : / mmHG Vent. Rate : 109 BPM Atrial Rate : 109 BPM P-R Int : 138 ms QRS Dur : 070 ms QT Int : 340 ms P-R-T Axes : 067 023 073 degrees QTc Int : 457 ms Poor data quality, interpretation may be adversely affected Sinus tachycardia Possible Left atrial enlargement Nonspecific ST and T wave abnormality Abnormal ECG When compared with ECG of 25-NOV-2023 21:46, No significant change Confirmed by Elan Pak ([id number]) on 01/01/2024 7:41:23 PM Referred By: REFERRED SELF Confirmed By:Elan Pak
[2024-01-01 20:04] LABS: Calcium 8.7 mg/dl (8.6-10.3); Creatinine Clr Calc Pharmacy 125.5 ml/min; Est GFR (African American) 121.9 ml/min; Est GFR (Non-African American) 105.2 ml/min; Potassium 4.4 mmol/L (3.5-5.1)
--- NOTE | 2024-01-01 20:17 | Discharge Summary ---
Discharge Summary Date of Service January 01, 2024 Principal Dx & Hospital Course #1 = Principal Diagnosis (1) Pulmonary embolism: 58yo female with extensive complex past surgical history secondary to perforated appendicitis requiring multiple surgical procedures at [facility] including ostomy placement this past October, subsequent infection requiring abscess drainage and washout 1 month ago, transferred to [facility], discharged to home from that facility on 12/16/23. Pt typically on home oxygen Presents the emergency department with acute respiratory failure with hypoxia, Found to have submassive R PE and SIRS -requiring supplemental oxygen Hemodynamically stable, does have bilateral pleural effusion Patient with prior history of PE in 2003 following operation on the right foot. -Heparin gtt --> held for thoracenteiss, resumed, will consider NOAC when stable -Check 2D echo -Empiric antibiotic coverage with Zosyn and Vancomycin -positive bilateral LE dopplers Occlusive deep venous thrombus is in the left lower extremity extending from the common femoral vein to the greater saphenous vein and superficial femoral vein. There is also a nonocclusive official femoral vein extending from the distal superficial femoral vein through the popliteal, posterior tibial, peroneal, and one of the paired anterior tibial veins. *Acute pulmonary embolism due to acute left lower extremity DVT's Patient currently HD stable, adequate oxygenation on 2L Oxymask. Patient prefers to breath through her mouth and is more comfortable on Oxymask than NC (2) Open abdominal wall wound: Likely ongoing infection. Patient with sepsis, present on admission - tachycardia, tachypnea, leukocytosis. -Wound/Ostomy care -Culture obtained from left lower abdominal wound -Continue Vancomycin and Zosyn -Nutrition consultation - hopeful to improve wound healing -Morphine as needed for pain control -Zofran as needed for nausea -Miralax as needed for constipation CT abd pelvis IV con only CLINICAL HISTORY: extensive abdominal surgery, draining wound TECHNIQUE: Helical axial images of the abdomen and pelvis were obtained and displayed. Automated dose lowering techniques and/or adjustment according to patient size were utilized for this exam. This exam was performed with intravenous contrast. CT DOSE: 961.45 mGy.cm COMPARISON: Comparison is made to CT abdomen pelvis 11/26/2023 FINDINGS: Lower chest: Moderate right and small left pleural effusions are seen. Airspace opacities in the left lower lobe. Liver: Unremarkable. No focal lesions are seen. Gallbladder and biliary tree: Cholelithiasis is seen without evidence of cholecystitis. No intra- or extrahepatic biliary ductal dilation. Pancreas: Unremarkable, no focal lesions. 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 Adrenals: Unremarkable. Kidneys and ureters: Unremarkable. Bladder: Gramajo catheter is seen. Reproductive organs: Unremarkable. Previously noted fluid collection posterolateral to the uterus is not clearly seen. Bowel: Patient is status post right lower quadrant colostomy. Lymph nodes Retroperitoneal: Unremarkable. Pelvic: Unremarkable. Mesenteric: Unremarkable. Peritoneum: Normal. Vessels: Unremarkable. Abdominal wall: Enhancing abdominal wall fluid collection is seen. There is involvement of the abdominal musculature but not of the peritoneal cavity. Drainage to the skin is noted. Bones: Unremarkable. IMPRESSION: 1. Interval development of an abdominal wall fluid collection with drainage to the skin concerning for extensive abscess. Surgical consultation is recommended. No peritoneal invasion is seen. 2. Previously noted fluid collection posterolateral to the uterus is no longer clearly seen. 3. Cholelithiasis without cholecystitis. 4. Additional findings as above. ACT 112: Negative or not required by law. Electronically signed by: Luis Edward M.D. 01/01/2024 5:27 PM Dictated: 01/01/241713 Transcribed: 01/01/241713 Patient to be transferred to [facility] service of Dr. Herbert Recommend consultation with Interventional Radiology and General Surgery for management of superficial abcess (3) Pleural effusion: Patient with moderate left sided pleural effusion. She had an ultrasound-guided thoracentesis performed today 01/01/24 in which 1700mL of serosanguineous fluid was removed. Fluid was sent for labs, culture and cytology. Pleural fluid pH=7.47 NRS=[id number] JZP=[id number] Total protein 4.4 XGT=255 Post-procedure CXR demonstrated small bilateral pleural effusions decreased on the left and increased on the right with no Pneumothorax s/p thoracentesis Plan Hypothyroidism -Continue Synthroid DM -Chronic -Lantus 24u daily and ISS anemia of chronic inflammation, iron low but so is binding capacity hgb 9.6 Notes For Next Care Provider Evaluation by General Surgery and IR for management of abdominal wall collection Ongoing management of acute PE/DVT Admission HPI Per Admitting Provider Acacia Vo is a 58yo female with history of Hypothyroidism, DM presenting with shortness of breath. Patient with a fairly complex past history. She initially presented to an outside facility on 10/27/23 with abdominal pain and DKA. She was found to herrera ve perforation of her colon and appendix. She had a partial colectomy with colostomy formation and was ultimately discharged home on 11/13/23. She presented to [facility] ER on 11/26/23 with sepsis - WBC of 56.47. Imaging at that time with moderate bilateral pleural effusions, bilateral lower lobe atelectasis and a fluid collection to the right posterolateral uterus measuring 5.5 x 2 x 2 cm which could represent a small abscess. Patient was managed with Zosyn and ultimately transferred to [facility]. She remained there until 12/05/23 and reportedly had a washout performed. She has an open abdominal wound at present with wet-to-dry dressings daily as well as a curtis drain. She has a small tunneled lesion on her left lower abdomen with continuous purulent drainage. Patient was discharged to [facility] where she participated in rehab. She was ultimately discharged home on 12/16/23. Patient reports she has been very weak since returning home. She is very afraid of falling therefore does not ambulate much. She has had a poor appetite and note eating well. Her and home nursing complete dressing changes. In addition to her abdominal wounds she has a sacral wound as well. This AM she woke and did not feel like herself. She felt nauseated and very short of breath. She was not able to eat her breakfast or walk due to her shortness of breath. Patient wears 2L of supplemental O2 at baseline - she reports that her home tank wasn't working. Her nurse checked her pulse ox and was found to be 85%. Her O2 tank was fixed and increased her flow to 4L but she remained short of breath which prompted her to come to the ER. In the ER she was afebrile, tachycardic with HR of 103, tachypneic with RR of 31, saturating 70% on RA. She was placed on NRB with improvement in saturations. Admission Exam Per Admitting Provider General: ill appearing female, NRB in place Skin: no rash HEENT: NC/AT, PERRL, EOMI, anicteric sclera, conjunctiva without injection, external ear normal to inspection and nontender, nares patent, moist mucus membranes, dentition intact, no oropharyngeal lesions, neck supple, trachea midline, no LAD, no thyromegaly, no JVD Heart: +S1/S2, regular, tachycardic, no m/r/g Lungs: visibly tachypneic, diminished breath sounds in bilateral bases, no rhonchi or wheeze Abd: +BS, soft, open abdominal wound with ABD pad in place, curtis drain in place, small wound in left lower abdomen with expressible purulence, colostomy present with soft stool present in bag Neuro: nonfocal, patient AA&O x 4, speech intact, no facial droop, moving all extremities on command with equal strength 5/5 Discharge Exam General: ill appearing female, Oxymask in place Skin: no rash HEENT: NC/AT, PERRL, EOMI, anicteric sclera, conjunctiva without injection, external ear normal to inspection and nontender, nares patent, moist mucus membranes, dentition intact, no oropharyngeal lesions, neck supple, trachea midline, no LAD, no thyromegaly, no JVD Heart: +S1/S2, regular, tachycardic, no m/r/g Lungs: breathing more comfortably, no rales/rhonchi/wheezes Abd: +BS, soft, open abdominal wound with ABD pad in place, curtis drain in place, small wound in left lower abdomen with expressible purulence, colostomy present with soft stool present in bag Neuro: nonfocal, patient AA&O x 4, speech intact, no facial droop, moving all extremities on command with equal strength 5/5 Updated Medication List Medication Instructions Recorded Confirmed Type ergocalciferol (vitamin D2) 1,250 50,000 unit PO WK 11/26/23 01/01/24 History mcg (50,000 unit) capsule (Vitamin D2) insulin lispro 100 unit/mL 6 unit subcut TIDM 11/26/23 01/01/24 History subcutaneous pen (Humalog KwikPen (U-100) Insulin) levothyroxine 150 mcg tablet 150 mcg PO DAILYBB 11/26/23 01/01/24 History ascorbic acid (vitamin C) 500 mg 500 mg PO Q OTHER DAY 01/01/24 01/01/24 History tablet (Vitamin C) cephalexin 250 mg capsule 250 mg PO Q6 01/01/24 01/01/24 History ferrous sulfate 325 mg (65 mg 325 mg PO Q OTHER DAY 01/01/24 01/01/24 History iron) tablet folic acid 1 mg tablet 1 mg PO DAILY 01/01/24 01/01/24 History insulin glargine 100 unit/mL (3 24 unit subcut QAM 01/01/24 01/01/24 History mL) subcutaneous pen (Lantus Solostar U-100 Insulin) pantoprazole 40 mg tablet,delayed 40 mg PO DAILYBB 01/01/24 01/01/24 History release (Protonix) psyllium husk 3.4 gram/5.4 gram 1 tbsp PO BID PRN Constipation 01/01/24 01/01/24 History oral powder (Metamucil) Hospital Stay Data Consultations 12/31/23 23:17 ED Decision to Admit Stat 01/01/24 01:31 Consult Head Counselor Routine 01/01/24 17:48 Consult General Surgery Routine 01/01/24 19:51 Burn CD for patient Stat Procedures Performed Thoracentesis performed on 01/01/24 Diagnostic Imagining Performed 12/31/23 19:19 CT angio chest PE protocol Stat 01/01/24 01:47 US venous doppler LE BI Routine 01/01/24 07:29 US point of care ultrasound Urgent 01/01/24 12:00 CT Abd and Pelvis [CT abd pelvis IV con only] Routine Total Time Total Time Spent Total Time Spent (In Minutes): 35 minutes Coding Level of Care Code 72559 INP/OBS DISCH >30 MIN Diagnoses Pulmonary embolism I26.99 Acute cor pulmonale presence: unspecified Chronicity: acute Pulmonary embolism type: unspecified Open abdominal wall wound S31.109A Pleural effusion J90
[2024-01-01 22:10] LABS: ANTI-Xa, UFH(UnfractionatedHep < 0.10 IU/ml (0.3-0.7)
[2024-01-02] MEDS: MoRPHine SULFATE 2 MG/ML CARP IV PRN (04:21)
[2024-01-02 04:50] LABS: Basophils # (auto) 0.05 K/uL (0.00-0.20); Basophils % (auto) 0.3 %; Eosinophils # (auto) 0.11 K/uL (0.00-0.50); Eosinophils % (auto) 0.7 %; Hematocrit (blood only) 31.7 % (37.0-47.0); Hemoglobin 9.9 g/dl (12.0-16.0); Immature Granulocytes % (auto) 1.3 %; Lymphocytes # (auto) 2.18 K/uL (1.20-3.40); Lymphocytes % (auto) 13.9 %; Mean Corpuscular Hemoglobin 27.3 pg (25.0-34.0); Mean Corpuscular Hgb Conc 31.2 g/dL (32.0-36.0); Mean Corpuscular Volume 87.3 fL (80.0-100.0); Mean Platelet Volume 9.8 fL (9.4-12.4); Monocytes # (auto) 1.04 K/uL (0.11-0.59); Monocytes % (auto) 6.6 %; Neutrophils # (auto) 12.07 K/uL (1.40-6.50); Neutrophils % (auto) 77.2 %; Platelet Count 641 K/uL (130-400); RDW Coefficient of Variation 17.6 % (11.5-14.5); RDW Standard Deviation 56.6 fL (36.4-46.3); Red Blood Count 3.63 M/uL (4.20-5.40); White Blood Count 15.65 K/ul (4.8-10.8)
[2024-01-02 04:59] LABS: Albumin Level 2.6 gm/dl (3.4-5.0); BUN Creatinine Ratio 21.6 (10-20); Bilirubin Direct 0.2 mg/dl (0-0.2); Bilirubin,Total 0.4 mg/dl (0.2-1.0); Calcium 8.5 mg/dl (8.6-10.3); Creatinine Clr Calc Pharmacy 123.1 ml/min; Est GFR (African American) 121.1 ml/min; Est GFR (Non-African American) 104.5 ml/min; Magnesium 2.1 mg/dl (1.7-2.4); Phosphorus 3.7 mg/dl (2.5-4.9); Potassium 3.7 mmol/L (3.5-5.1); Total Protein 6.2 gm/dl (6.0-8.3)
[2024-01-02 05:07] VITALS: TEMP 98.2
[2024-01-02 05:07] LABS: ANTI-Xa, UFH(UnfractionatedHep 0.26 IU/ml (0.3-0.7)
[2024-01-02 05:43] LABS: Folate (Folic Acid),Ser orPlas 16.54 ng/ml (>5.38)
[2024-01-02 06:09] VITALS: RESP 23; O2SAT 97
--- NOTE | 2024-01-02 07:16 | Pharmacy Report ---
Pharmacy PK ABX Note - Date of Service January 02, 2024 - Assessment and Plan Assessment 58 year old F receiving Vancomycin and Zosyn for treatment of abscess. * Day #3 of antimicrobial therapy. * Patient was on Vanc and Zosyn but Vanc was discontinued yesterday. However, it was resumed over night. * Patient is to be transferred to [facility] this morning. Plan Vancomycin * Maintenance dose: 1250 mg IV every 8 hours * Regimen is predicted to achieve target AUC/ALEXANDR of 400-600 mg/L.hr * No level will be ordered prior to transfer Pharmacy will continue to follow and will adjust dose/frequency as necessary. Thank you. Pharmacy has transitioned to AUC monitoring for vancomycin. AUC/ALEXANDR is the preferred PK/PD target and is associated with decreased risk of nephrotoxicity compared to traditional trough targets.
--- NOTE | 2024-01-02 07:23 | Pulmonology Progress Note ---
Date of Service January 02, 2024 Assessment & Plan (1) Pulmonary embolism: Acute cor pulmonale presence: unspecified Chronicity: acute P ulmonary embolism type: unspecified Qualified Code(s): I26.99 - Other pulmonary embolism without acute cor pulmonale (2) Hypoxic respiratory failure: (3) Bilateral pleural effusion: Plan 58 YOF post surgical care received at [facility]. Presents to EMD for hypoxia, noted to have sub massive right sided pulmonary embolism, bilateral pleural effusions, SIRS with ALFRED. -- Pulmonary embolism with acute DVT left lower extremity- Submassive involving majority of right pulmonary artery branches - Blood pressure has remained stable, lactate negative, BNP 103 -mildly elevated, Troponin Negative - Shock index 1.1 Would recommend lifetime anticoagulation given the patient mobility is very limited and she is at high risk for blood clots again Full dose anticoagulation for 3 months followed by prophylactic anticoagulation --Acute hypoxic respiratory failure Multifactorial Hypoxia is likely from pulmonary emboli as well as bilateral pleural effusion -Bilateral pleural effusion Has been present for at least 2 months, but increase of left sided resulting in compressive atelectasis of left upper lobe - likely related to poor nutritional intake- low oncotic pressure however can't exclude possible source for infection S/p left-sided thoracentesis 1.7 L serosanguineous fluid removed, exudative as per lights criteria Follow-up cytology and culture --Prophylaxis VTE: Heparin drip GI: Pantoprazole Lines: Peripheral, ostomy, zamudio Diet: Regular Plan: In/out: +1.5 L Give another dose of Lasix 20 mg today Continue with incentive spirometry Follow-up cytology and culture of the left-sided pleural effusion. Would recommend lifetime anticoagulation given the patient mobility is very limited and she is at high risk for blood clots again Full dose anticoagulation for 3 months followed by prophylactic anticoagulation Patient is to be transferred to a tertiary center because of the abdominal abscess formation Please note the above document was generated using voice recognition software. It may contain grammatical, syntax or spelling errors.Any formal questions or concerns about the content, text or information contained within the body of this dictation should be directly addressed to the provider for clarification. Admission and Anticipated Discharge Date Admission Date: January 01, 2024 Subjective Patient seen and examined at bedside. No acute distress, no adverse events overnight She was saturating 97-98% on 2 L nasal cannula. Not in any respiratory distress Still complained of lower back pain Stated that her breathing is significantly improved after the thoracentesis. No nausea or vomiting Mild abdominal discomfort. No headache or blurry vision Review of Systems 2 Review of Systems: All systems reviewed & are unremarkable except as noted in Subjective Physical Exam 2 Physical Exam: Constitutional: No acute distress HEENT: EOMI, PERRLA Respiratory system: Decreased air entry bilaterally, no wheeze, no rhonchi, positive crackles bilaterally CVS: S1-S2 positive, no murmurs or gallops Abdomen: Soft, nontender, nondistended, positive bowel sounds x4, positive ostomy, suprapubic drainage serous looking Extremities: +2 pulses bilaterally radialis/ dorsalis pedis, no cyanosis, +1 pitting edema bilateral lower extremity Neuro: Awake alert oriented x3 Psych: Normal mood and affect G/U: Positive Zamudio Skin: no rashes, warm and dry Lymphatic: no cervical or axillary lymphadenopathy Results & Data Results & Data Vital Signs (Past 12 Hours) Vital Signs Temp Pulse Resp BP Pulse Ox Pulse Ox O2 Del Method 01/02/24 06:00 85 23 121/60 97 Oxymask 01/02/24 05:00 83 18 122/66 97 Oxymask 01/02/24 04:00 36.8 C 85 19 122/70 96 Oxymask 01/02/24 03:00 87 23 122/70 96 Oxymask 01/02/24 02:00 87 19 102/58 L 94 Oxymask 01/02/24 02:00 95 01/02/24 01:00 89 26 H 117/62 94 Oxymask 01/02/24 00:00 36.9 C 90 25 H 121/68 93 Oxymask 01/01/24 23:00 92 H 20 110/61 93 Oxymask 01/01/24 22:00 91 H 23 124/68 93 Oxymask 01/01/24 21:00 91 H 20 99/60 L 95 Oxymask 01/01/24 20:00 36.7 C 92 H 25 H 118/61 94 Oxymask 01/01/24 20:00 Oxymask O2 Del Method O2 Flow Rate O2 Flow Rate 01/02/24 06:00 2 01/02/24 05:00 2 01/02/24 04:00 2 01/02/24 03:00 2 01/02/24 02:00 2 01/02/24 02:00 Oxymask 2 01/02/24 01:00 2 01/02/24 00:00 2 01/01/24 23:00 2 01/01/24 22:00 2 01/01/24 21:00 2 01/01/24 20:00 2 01/01/24 20:00 2 Laboratory Results 01/02/24 04:00 01/02/24 04:00 PG Care Time/CCT Total # of Minutes Spent Total Time Spent with Patient: Total time spent is greater than 50% in coordination of care (as documented) at patient's floor/unit and/or counseling patient: Coding Level of Care Code 25762 SUB INP/OBS CARE 3/50MIN Diagnoses Pulmonary embolism I26.99 Acute cor pulmonale presence: unspecified Chronicity: acute Pulmonary embolism type: unspecified Hypoxic respiratory failure J96.91 Bilateral pleural effusion J90
[2024-01-02] MEDS: FUROSEMIDE INJ 20 MG/2 ML VIAL IV ONE (07:36)
[2024-01-02 07:49] VITALS: BP 120/82; PULSE 98
[2024-01-02] MEDS ORDERED: FERROUS SULFATE 325 MG TAB PO SCH (09:00)
[2024-01-02] MEDS ORDERED: THIAMINE HCL 100 MG in SYRINGE 9 ML IV SCH (09:00)
[2024-01-02] MEDS ORDERED: LANTUS PER UNIT CHARGE SC SCH (09:00)
== END 2024-01-02 07:49 | disposition short-term general hospital (02) | DRG 871 ==
LOC: ED 18:55 → SUATTDRO 01-01 00:19 → 1E 01-01 00:19
DX: Z79.890 Hormone replacement therapy; Z79.899 Other long term (current) drug therapy; E11.9 Type 2 diabetes mellitus without complications; I26.09 Other pulmonary embolism with acute cor pulmonale; N17.9 Acute kidney failure, unspecified; J90 Pleural effusion, not elsewhere classified; I82.412 Acute embolism and thrombosis of left femoral vein; K65.1 Peritoneal abscess; I26.94 Multiple subsegmental thrombotic pulmonary emboli without acute cor pulmonale; D63.8 Anemia in other chronic diseases classified elsewhere; A41.9 Sepsis, unspecified organism; E03.9 Hypothyroidism, unspecified; J96.01 Acute respiratory failure with hypoxia